=== PATIENT | female | born 1935 | race Caucasian/White ===

== ENCOUNTER 2019-09-25 19:29 | Observation (INO) | payer OTHER ==
[2019-09-25] MEDS ORDERED: ONDANSETRON 4 MG/2 ML VIAL ONE (19:55)
[2019-09-25] MEDS ORDERED: MECLIZINE HCL 12.5 MG TAB ONE (19:55)
[2019-09-25] MEDS ORDERED: FOLIC ACID 5 MG/ML VIAL ONE (20:20)
[2019-09-25] MEDS ORDERED: FAMOTIDINE 20 MG/2 ML VIAL IV ONE (20:20)
[2019-09-25] MEDS ORDERED: ASPIRIN 81 MG CHEWABLE TABLET ONE ×2 (20:20→20:45)
--- NOTE | 2019-09-25 20:34 | RAD REPORT ---
EXAM DESCRIPTION: Erick Single View09/25/2019 8:14 pm CLINICAL HISTORY: Chest pain COMPARISON: 2016 FINDINGS: The lungs appear clear of acute infiltrate. The heart is mildly enlarged IMPRESSION: No acute abnormalities displayed
[2019-09-25] MEDS ORDERED: NA CHLORIDE 0.9% 1,000 ML ONE (20:46)
--- NOTE | 2019-09-25 20:56 | RAD REPORT ---
EXAM DESCRIPTION: CT - Head Brain Wo Cont - 09/25/2019 8:34 pm CLINICAL HISTORY: Dizziness COMPARISON: None TECHNIQUE: Computed axial tomography of the head was obtained. IV contrast was not requested. All CT scans are performed using dose optimization technique as appropriate and may include automated exposure control or mA/KV adjustment according to patient size. FINDINGS: An intracranial bleed is not seen . The ventricles are normal in caliber. No extra-axial fluid collection is noted. Mild to moderate low-density areas within periventricular, deep and subcortical white matter likely r epresent ischemic changes secondary to small vessel disease. Fluid within the sinuses/ mastoids is not seen. IMPRESSION: No acute intracranial abnormality is seen. If patient's symptoms persist MRI of the bra in would be recommended.
--- NOTE | 2019-09-25 21:10 | ER ---
Nurse's Notes [facility] Name: Julieth Barragan Age: 84 yrs Sex: Female : 1935 Arrival Date: 09/25/2019 Time: 19:31 Bed 5 Private MD: Diagnosis: Dizziness and giddiness;Vomiting;Parkinson's disease;Urinary tract infection, site not specified Presentation: 09/25 19:35 Presenting complaint: Patient states: dizziness X5 days, vomiting started today. pt ak1 states the change in position increases the dizziness and vomiting. pt tried to see PCP DR. Jefferson this week but no appointments open. pt thought she had an ear infection and has been treating it with OTC medication. Transition of care: patient was not received from another setting of care. Onset of symptoms was September 25, 2019. Risk Assessment: Do you want to hurt yourself or someone else? Patient reports no desire to harm self or others. Initial Sepsis Screen: Does the patient meet any 2 criteria? No. Patient's initial sepsis screen is negative. Does the patient have a suspected source of infection? No. Patient's initial sepsis screen is negative. Care prior to arrival: zofran 4mg IV. 19:35 Acuity: RUKHSANA 3 ak1 19:35 Method Of Arrival: EMS: [facility] ak1 Triage Assessment: 19:37 General: Appears in no apparent distress. Behavior is calm, cooperative. Pain: Denies ak1 pain. EENT: No signs and/or symptoms were reported regarding the EENT system. Neuro: Level of Consciousness is awake, alert, obeys commands, Oriented to person, place, time, situation, It Generalist are equal bilaterally Moves all extremities. Full function Gait is unsteady, pt c/o dizziness X5 days. Speech is normal, Facial symmetry appears normal. Cardiovascular: No deficits noted. Respiratory: Airway is patent Respiratory effort is even, unlabored, Respiratory pattern is symmetrical, Breath sounds are clear bilaterally. GI: Abdomen is flat, non-distended, Bowel sounds present X 4 quads. Abd is soft and non tender X 4 quads. Reports nausea, vomiting, since tonight due to dizziness. : No signs and/or symptoms were reported regarding the genitourinary system. Derm: No signs and/or symptoms reported regarding the dermatologic system. Musculoskeletal: No signs and/or symptoms reported regarding the musculoskeletal system. Historical: - Allergies: 19:37 No Known Allergies; ak1 - Home Meds: 19:37 Carbidopa-Levodopa Oral [Active]; unknown ostioprosis medication [Active]; Simvastatin ak1 Oral [Active]; - PMHx: 19:37 High Cholesterol; Osteoporosis; Parkinsons; ak1 - PSHx: 19:37 Cholecystectomy; Hysterectomy; ak1 - Immunization history:: Adult Immunizations unknown. - Social history:: Smoking status: Patient/guardian denies using tobacco. - Ebola Screening: : No symptoms or risks identified at this time. - Family history:: not pertinent. Screenin:39 Abuse screen: Denies threats or abuse. Denies injuries from another. Nutritional ak1 screening: No deficits noted. Tuberculosis screening: No symptoms or risk factors identified. Fall Risk IV access (20 points). Gait- Impaired (20 pts.). Assessment: 20:23 Reassessment: Patient appears in no apparent distress at this time. Patient is alert, ak1 oriented x 3, equal unlabored respirations, skin warm/dry/pink. family at bedside. Patient states symptoms have improved. General: Appears in no apparent distress. comfortable, Behavior is calm, cooperative. 21:06 Reassessment: Patient appears in no apparent distress at this time. Patient and/or ak1 family updated on plan of care and expected duration. Pain level reassessed. Patient is alert, oriented x 3, equal unlabored respirations, skin warm/dry/pink. Patient denies pain at this time. Patient states feeling better. Patient states symptoms have improved. Vital Signs: 19:37 BP 203 / 86; Pulse 107; Resp 16; Temp 97.0; Pulse Ox 100% on R/A; Weight 81.65 kg (R); ak1 Height 5 ft. 6 in. (167.64 cm) (R); Pain 0/10; 20:23 BP 153 / 65; Pulse 64; Resp 16; Temp 97; Pulse Ox 95% on R/A; Pain 0/10; ak1 21:39 BP 153 / 141; Pulse 74; Resp 14; Temp 97.6(TE); Pulse Ox 98% on R/A; ak1 19:37 Body Mass Index 29.05 (81.65 kg, 167.64 cm) ak1 NIH Stroke Scale Scores: 20:20 NIHSS Score: 0 [facility] ED Course: 19:31 Patient arrived in ED. cf2 19:35 Roselyn Petty, RN is Primary Nurse. ak1 19:36 Triage completed. ak1 19:37 Arm band placed on Patient placed in an exam room, on a stretcher, on pulse oximetry, ak1 Patient notified of wait time. 19:39 Patient has correct armband on for positive identification. Bed in low position. Call ak1 light in reach. Side rails up X2. Adult w/ patient. Pulse ox on. NIBP on. 19:39 Maintain EMS IV. Dressing intact. Site clean \T\ dry. Gauge \T\ site: 20g right hand. ak 1 19:45 Parminder Guardado MD is Attending Physician. jose roberto 20:06 XRAY Chest (1 view) Sent. ak1 20:10 XRAY Chest (1 view) In Process Unspecified. EDMS 20:33 CT completed. Patient tolerated procedure well. Patient moved back from CT. bq 20:36 CT Head Brain wo Cont In Process Unspecified. EDMS 21:08 Layla Drummond MD is Hospitalizing Provider. jose roberto 21:42 No provider procedures requiring assistance completed. Patient admitted, IV remains in ak1 place. Administered Medications: 20:15 Drug: Meclizine 25 mg Route: PO; ak1 20:22 Follow up: Response: No adverse reaction ak1 20:15 Drug: Zofran 4 mg Route: IVP; Site: right hand; ak1 20:22 Follow up: Response: No adverse reaction ak1 20:21 Drug: Aspirin Chewable Tablet 324 mg Route: PO; ak1 20:22 Follow up: Response: No adverse reaction ak1 20:21 Drug: Pepcid 20 mg Route: IVP; Site: right hand; ak1 20:22 Follow up: Response: No adverse reaction ak1 20:22 Drug: foLIC Acid 1 mg Route: IVPB; Site: right hand; ak1 21:23 Follow up: IV Status: Completed infusion ak1 20:25 Not Given (Duplicate Order): foLIC Acid 1 mg IVPB once ak1 21:06 Drug: NS 0.9% 1000 ml Route: IV; Rate: 125 ml/hr; Site: right hand; ak1 21:42 Follow up: IV Status: Infusion continued upon admission ak1 21:22 Drug: Rocephin 1 grams Route: IV; Rate: per protocol; Site: right hand; ak1 21:23 Follow up: IV Status: Completed infusion ak1 Outcome: 21:09 Decision to Hospitalize by Provider. jose roberto 21:42 Condition: improved ak1 22:29 Admitted to Tele accompanied by ruthie, via stretcher, room 426, with chart, Report rr5 called to yulissa 22:29 Instructed on the need for admit. 22:50 Patient left the ED. ak1 NIH Stroke Scale - NIH Stroke Score Date: 09/25/2019 Time: 20:20 Total Score = 0 1a. Level of Consciousness (LOC) - 0(Alert) 1b. Level of Consciousness (LOC) (Year \T\ Age) - 0(Both) 1c. LOC Commands (Open \T\ Closes Eyes/Residential Therapist) - 0(Both) 2. Best Gaze (Lateral Gaze Paresis) - 0(Normal) 3. Visual Field Loss - 0(No visual loss) 4. Facial Palsy - 0(Normal) 5a. Left Arm: Motor (10-second hold) - 0(No drift) 5b. Right Arm: Motor (10-second hold) - 0(No drift) 6a. Left Leg: Motor (5-second hold - always test supine) - 0(No drift) 6b. Right Leg: Motor (5-second hold - always test supine) - 0(No drift) 7. Limb Ataxia (finger/nose \T\ heel/vdial - test with eyes open) - 0(Absent) 8. Sensory Loss (pinprick arms/legs/face) - 0(Normal) 9. Best Language: Aphasia (description/naming/reading) - 0(No aphasia) 10. Dysarthria (speech clarity - read or repeat words) - 0(Normal) 11. Extinction and Inattention (visual/tactile/auditory/spatial/personal) - 0(No abnormality) Initials: jose roberto Signatures: Dispatcher [employer] EDParminder Bronson MD MD cha Quilty, Betty bq Krenek, Amber RN RN ak1 Jeremy Ambriz RN RN rr5 Caden Walter2
--- NOTE | 2019-09-25 21:10 | EDPHYS ---
Physician Documentation [facility] Name: Julieth Barragan Age: 84 yrs Sex: Female : 1935 Arrival Date: 09/25/2019 Time: 19:31 Bed 5 Private MD: ED Physician Parminder Guardado HPI: 09/25 20:17 This 84 yrs old Female presents to ER via EMS with complaints of jose roberto Nausea/Vomiting. 20:17 The patient presents to the emergency department with nausea, vomiting, that is jose roberto intermittent. Onset: The symptoms/episode began/occurred just prior to arrival, 2.5 hour(s) ago. Possible causes: unknown. The symptoms are aggravated by nothing. Associated signs and symptoms: Pertinent positives: nausea, vomiting. Severity of symptoms: At their worst the symptoms were mild in the emergency department the symptoms are unchanged. The patient has not experienced similar symptoms in the past. Historical: - Allergies: 19:37 No Known Allergies; ak1 - Home Meds: 19:37 Carbidopa-Levodopa Oral [Active]; unknown ostioprosis medication [Active]; Simvastatin ak1 Oral [Active]; - PMHx: 19:37 High Cholesterol; Osteoporosis; Parkinsons; ak1 - PSHx: 19:37 Cholecystectomy; Hysterectomy; ak1 - Immunization history:: Adult Immunizations unknown. - Social history:: Smoking status: Patient/guardian denies using tobacco. - Ebola Screening: : No symptoms or risks identified at this time. - Family history:: not pertinent. ROS: 20:17 Constitutional: Negative for fever, chills, and weight loss, Eyes: Negative for injury, jose roberto pain, redness, and discharge, ENT: Negative for injury, pain, and discharge, Neck: Negative for injury, pain, and swelling, Cardiovascular: Negative for chest pain, palpitations, and edema, Respiratory: Negative for shortness of breath, cough, wheezing, and pleuritic chest pain, Abdomen/GI: Negative for abdominal pain, nausea, vomiting, diarrhea, and constipation, Back: Negative for injury and pain, : Negative for injury, bleeding, discharge, and swelling, MS/Extremity: Negative for injury and deformity, Skin: Negative for injury, rash, and discoloration, Psych: Negative for depression, anxiety, suicide ideation, homicidal ideation, and hallucinations, Allergy/Immunology: Negative for hives, rash, and allergies, Endocrine: Negative for neck swelling, polydipsia, polyuria, polyphagia, and marked weight changes, Hematologic/Lymphatic: Negative for swollen nodes, abnormal bleeding, and unusual bruising. 20:17 Neuro: Positive for dizziness, hearing loss, of the left ear. Exam: 20:17 Constitutional: This is a well developed, well nourished patient who is awake, alert, jose roberto and in no acute distress. Head/Face: Normocephalic, atraumatic. ENT: Nares patent. No nasal discharge, no septal abnormalities noted. Tympanic membranes are normal and external auditory canals are clear. Oropharynx with no redness, swelling, or masses, exudates, or evidence of obstruction, uvula midline. Mucous membranes moist. Neck: Trachea midline, no thyromegaly or masses palpated, and no cervical lymphadenopathy. Supple, full range of motion without nuchal rigidity, or vertebral point tenderness. No Meningismus. Chest/axilla: Normal chest wall appearance and motion. Nontender with no deformity. No lesions are appreciated. Cardiovascular: Regular rate and rhythm with a normal S1 and S2. No gallops, murmurs, or rubs. Normal PMI, no JVD. No pulse deficits. Respiratory: Lungs have equal breath sounds bilaterally, clear to auscultation and percussion. No rales, rhonchi or wheezes noted. No increased work of breathing, no retractions or nasal flaring. Abdomen/GI: Soft, non-tender, with normal bowel sounds. No distension or tympany. No guarding or rebound. No evidence of tenderness throughout. Back: No spinal tenderness. No costovertebral tenderness. Full range of motion. Skin: Warm, dry with normal turgor. Normal color with no rashes, no lesions, and no evidence of cellulitis. MS/ Extremity: Pulses equal, no cyanosis. Neurovascular intact. Full, normal range of motion. Neuro: Awake and alert, GCS 15, oriented to person, place, time, and situation. Cranial nerves II-XII grossly intact. Motor strength 5/5 in all extremities. Sensory grossly intact. Cerebellar exam normal. Normal gait. Psych: Awake, alert, with orientation to person, place and time. Behavior, mood, and affect are within normal limits. 20:17 Eyes: Periorbital structures: appear normal, no acute changes, Pupils: no acute changes, equal, round, and reactive to light and accomodation, Extraocular movements: intact throughout, Conjunctiva: normal, no acute changes, Nystagmus: nystagmus with fast component noted, bilaterally. Vital Signs: 19:37 BP 203 / 86; Pulse 107; Resp 16; Temp 97.0; Pulse Ox 100% on R/A; Weight 81.65 kg (R); ak1 Height 5 ft. 6 in. (167.64 cm) (R); Pain 0/10; 20:23 BP 153 / 65; Pulse 64; Resp 16; Temp 97; Pulse Ox 95% on R/A; Pain 0/10; ak1 21:39 BP 153 / 141; Pulse 74; Resp 14; Temp 97.6(TE); Pulse Ox 98% on R/A; ak1 19:37 Body Mass Index 29.05 (81.65 kg, 167.64 cm) ak1 NIH Stroke Scale Scores: 20:20 NIHSS Score: 0 jose roberto MDM: 19:45 Patient medically screened. jose roberto 20:20 Data reviewed: vital signs, nurses notes, lab test result(s), EKG, radiologic studies, [facility] CT scan, plain films. 09/25 19:41 Order name: Basic Metabolic Panel [facility] 09/25 19:41 Order name: CBC with Diff [facility] 09/25 19:41 Order name: LFT's [facility] 09/25 19:41 Order name: Magnesium [facility] 09/25 19:41 Order name: NT PRO-BNP [facility] 09/25 19:41 Order name: PT-INR [facility] 09/25 19:41 Order name: Troponin (emerg Dept Use Only) [facility] 09/25 19:53 Order name: Urine Culture [facility] 09/25 20:03 Order name: Glucose, Ancillary Testing; Complete Time: 20:53 EDMS 09/25 21:11 Order name: Urine Dipstick--Ancillary (enter results) [facility] 09/25 21:21 Order name: Manual Differential EDMS 09/25 21:39 Order name: CBC with Automated Diff EDMS 09/25 21:39 Order name: CBC with Automated Diff EDMS 09/25 21:39 Order name: Comprehensive Metabolic Panel EDIN 09/25 19:41 Order name: XRAY Chest (1 view); Complete Time: 20:53 ak1 09/25 19:53 Order name: CT Head Brain wo Cont [facility] 09/25 20:15 Order name: US Carotid Artery Bilateral jose roberto 09/25 21:39 Order name: Comprehensive Metabolic Panel [facility] 09/25 21:39 Order name: Protime (+INR) [facility] 09/25 21:39 Order name: Protime (+INR) [facility] 09/25 21:39 Order name: PTT, Activated Partial Thromb [facility] 09/25 21:39 Order name: PTT, Activated Partial Thromb [facility] 09/25 19:41 Order name: EKG; Complete Time: 19:42 ak 09/25 19:41 Order name: Cardiac monitoring; Complete Time: 20:06 [facility] 09/25 19:41 Order name: EKG - Nurse/Tech; Complete Time: 20:06 [facility] 09/25 19:41 Order name: IV Saline Lock; Complete Time: 19:41 ak 09/25 19:41 Order name: Labs collected and sent; Complete Time: 19:41 [facility] 09/25 19:41 Order name: O2 Per Protocol; Complete Time: 19:41 [facility] 09/25 19:41 Order name: O2 Sat Monitoring; Complete Time: 19:41 [facility] 09/25 19:51 Order name: Accucheck Blood Glucose; Complete Time: 19:51 [facility] 09/25 19:53 Order name: Urine Dipstick-Ancillary (obtain specimen); Complete Time: 21:09 [facility] 09/25 21:39 Order name: CONS Pharmacy Consult [facility] 09/25 21:39 Order name: CONS Physician Consult [facility] 09/25 21:39 Order name: Heart Healthy EDIN Administered Medications: 20:15 Drug: Meclizine 25 mg Route: PO; ak1 20:22 Follow up: Response: No adverse reaction ak1 20:15 Drug: Zofran 4 mg Route: IVP; Site: right hand; ak1 20:22 Follow up: Response: No adverse reaction ak1 20:21 Drug: Aspirin Chewable Tablet 324 mg Route: PO; ak1 20:22 Follow up: Response: No adverse reaction ak1 20:21 Drug: Pepcid 20 mg Route: IVP; Site: right hand; ak1 20:22 Follow up: Response: No adverse reaction ak1 20:22 Drug: foLIC Acid 1 mg Route: IVPB; Site: right hand; ak1 21:23 Follow up: IV Status: Completed infusion ak1 20:25 Not Given (Duplicate Order): foLIC Acid 1 mg IVPB once ak1 21:06 Drug: NS 0.9% 1000 ml Route: IV; Rate: 125 ml/hr; Site: right hand; ak1 21:42 Follow up: IV Status: Infusion continued upon admission ak1 21:22 Drug: Rocephin 1 grams Route: IV; Rate: per protocol; Site: right hand; ak1 21:23 Follow up: IV Status: Completed infusion ak1 Disposition: 09/25/19 21:09 Hospitalization ordered by Layla Drummond for Inpatient Admission. Preliminary diagnosis are Dizziness and giddiness, Vomiting, Parkinson's disease, Urinary tract infection, site not specified. - Bed requested for Telemetry/MedSurg (Inpatient). - Status is Inpatient Admission. ak1 - Condition is Stable. - Problem is new. - Symptoms have improved. UTI on Admission? Yes NIH Stroke Scale - NIH Stroke Score Date: 09/25/2019 Time: 20:20 Total Score = 0 1a. Level of Consciousness (LOC) - 0(Alert) 1b. Level of Consciousness (LOC) (Year \T\ Age) - 0(Both) 1c. LOC Commands (Open \T\ Closes Eyes/Industrial Maintenance Repairer Helper) - 0(Both) 2. Best Gaze (Lateral Gaze Paresis) - 0(Normal) 3. Visual Field Loss - 0(No visual loss) 4. Facial Palsy - 0(Normal) 5a. Left Arm: Motor (10-second hold) - 0(No drift) 5b. Right Arm: Motor (10-second hold) - 0(No drift) 6a. Left Leg: Motor (5-second hold - always test supine) - 0(No drift) 6b. Right Leg: Motor (5-second hold - always test supine) - 0(No drift) 7. Limb Ataxia (finger/nose \T\ heel/vidal - test with eyes open) - 0(Absent) 8. Sensory Loss (pinprick arms/legs/face) - 0(Normal) 9. Best Language: Aphasia (description/naming/reading) - 0(No aphasia) 10. Dysarthria (speech clarity - read or repeat words) - 0(Normal) 11. Extinction and Inattention (visual/tactile/auditory/spatial/personal) - 0(No abnormality) Initials: jose roberto Signatures: Dispatcher [employer] EDMS Parminder Guardado MD MD cha Krenek, Amber RN RN ak1 Britt Yusuf RN RN Corrections: (The following items were deleted from the chart) 21:10 21:09 Hospitalization Ordered by Layla Drummond MD for Inpatient Admission. [facility] Preliminary diagnosis is Dizziness and giddiness; Vomiting; Parkinson's disease. Bed requested for Telemetry/MedSurg (Inpatient). Status is Inpatient Admission. Condition is Stable. Problem is new. Symptoms have improved. UTI on Admission? No. [facility] 22:16 21:10 09/25/2019 21:09 Hospitalization Ordered by Layla Drummond MD for Inpatient Admission. Preliminary diagnosis is Dizziness and giddiness; Vomiting; Parkinson's disease; Urinary tract infection, site not specified. Bed requested for Telemetry/MedSurg (Inpatient). Status is Inpatient Admission. Condition is Stable. Problem is new. Symptoms have improved. UTI on Admission? Yes. [facility] 22:50 22:16 09/25/2019 21:09 Hospitalization Ordered by Layla Drummond MD for ak1 Inpatient Admission. Preliminary diagnosis is Dizziness and giddiness; Vomiting; Parkinson's disease; Urinary tract infection, site not specified. Bed requested for Telemetry/MedSurg (Inpatient). Status is Inpatient Admission. Condition is Stable. Problem is new. Symptoms have improved. UTI on Admission? Yes.
[2019-09-25 21:13] LABS: Absolute Lymphocytes (CBC) 0.7 K/uL (0.7-4.9); Basophils % 1.1 % (0-1.3); Lymphocytes % 6.7 % (15.3-44.8); MPV 9.2 fL (7.6-11.3); RBC Red Blood Cell Count 4.48 M/uL (3.86-4.86)
[2019-09-25 21:14] LABS: Protime INR 0.95
[2019-09-25] MEDS ORDERED: CEFTRIAXONE/SWI 1gm 1 GM/10 ML SYR ONE (21:21)
[2019-09-25] MEDS ORDERED: ONDANSETRON 4 MG/2 ML VIAL IV PRN (21:35)
[2019-09-25] MEDS ORDERED: ACETAMINOPHEN 500 MG TAB PO PRN (21:35)
[2019-09-25] MEDS ORDERED: MORPHINE 2 MG/ML SYR IV PRN (21:35)
[2019-09-25 21:41] LABS: ALT/SGPT 16 U/L (12-78); AST/SGOT 14 U/L (15-37); Albumin 3.3 g/dL (3.4-5.0); Alkaline Phosphatase 39 U/L (45-117); BUN Blood Urea Nitrogen 15 mg/dL (7-18); Bicarbonate 27 mmol/L (21-32); Bilirubin Direct 0.1 mg/dL (0-0.2); Bilirubin Total 0.5 mg/dL (0.2-1.0); Glucose Level 122 mg/dL (74-106); Magnesium 2.1 mg/dL (1.8-2.4); NT PRO-BNP 119 pg/mL (<450); Potassium 4.5 mmol/L (3.5-5.1); Protein, Total 6.1 g/dL (6.4-8.2); Sodium Level 142 mmol/L (136-145); Troponin (Emerg Dept Use Only) < 0.02 ng/mL (0.0-0.045)
[2019-09-25] MEDS: NA CHLORIDE 0.9% 1,000 ML IV SCH (22:00)
[2019-09-25 22:42] LABS: Blood Morphology Comment NOT SEEN (NOT SEEN); Platelet Estimate ADEQ
[2019-09-25 23:02] LABS: Urine Glucose NEGATIVE (NEG); Urine Specific Gravity 1.025 (1.005-1.030)
[2019-09-25 23:03] LABS: Urine Blood NEGATIVE (NEG); Urine Protein NEGATIVE (NEG)
[2019-09-25 23:06] VITALS: BMI 23.3
[2019-09-26] MEDS: NA CHLORIDE 0.9% 1,000 ML IV SCH (05:27)
--- NOTE | 2019-09-26 06:04 | EKG ---
Test Date: 2019-09-25 Test Time: 19:55:49 Tape Weaver: MURTAZA MEASUREMENT RESULTS: Intervals: Rate: 69 SC: 178 QRSD: 78 QT: 414 QTc: 443 Parmele: P: 71 SC: 178 QRS: 3 T: 48 INTERPRETIVE STATEMENTS: Normal sinus rhythm Possible Left atrial enlargement Borderline ECG Compared to ECG 04/11/2016 09:45:09 No significant changes Electronically Signed On 09-26-19 06:03:08 MANAGER COLLECTION by Sen Whitmore
[2019-09-26 06:08] LABS: Absolute Lymphocytes (CBC) 1.3 K/uL (0.7-4.9); Basophils % 0.3 % (0-1.3); Hematocrit 37.5 % (36.0-45.0); Lymphocytes % 17.4 % (15.3-44.8); MPV 9.5 fL (7.6-11.3); RBC Red Blood Cell Count 4.18 M/uL (3.86-4.86)
[2019-09-26 06:11] LABS: Protime INR 0.95
[2019-09-26 06:28] LABS: ALT/SGPT 18 U/L (12-78); AST/SGOT 12 U/L (15-37); Albumin 2.8 g/dL (3.4-5.0); Alkaline Phosphatase 35 U/L (45-117); BUN Blood Urea Nitrogen 13 mg/dL (7-18); Bicarbonate 28 mmol/L (21-32); Bilirubin Total 0.5 mg/dL (0.2-1.0); Glucose Level 93 mg/dL (74-106); Potassium 4.3 mmol/L (3.5-5.1); Protein, Total 5.2 g/dL (6.4-8.2); Sodium Level 146 mmol/L (136-145)
[2019-09-26] MEDS: PRAMIPEXOLE 0.25 MG TAB PO SCH ×2 (08:48→20:16)
[2019-09-26] MEDS: CARBIDOPA/LEVODOPA 25/100 TAB PO SCH ×2 (08:48→20:16)
[2019-09-26] MEDS: RALOXIFENE HCL 60 MG TAB PO SCH (08:49)
--- NOTE | 2019-09-26 09:03 | P.HP ---
Certification for Inpatient Patient admitted to: Observation With expected LOS: <2 Midnights Patient will require the following post-hospital care: None Practitioner: I am a practitioner with admitting privileges, knowledge of patient current condition, hospital course, and medical plan of care. Services: Services provided to patient in accordance with Admission requirements found in Title 42 Section 412.3 of the Code of Federal Regulations Patient History Date of Service: 09/25/19 Reason for admission: Vertigo; near syncope; ataxia; nausea and vomiting History of Present Illness: Patient is an 84-year-old female came to the hospital with intractable nausea and vomiting. Patient has been having intermittent vomiting for the last few hours. Patient also has been having some lightheadedness and vertigo type symptoms. Patient was having lot of difficulty walking because she was so dizzy. She decided to come into the emergency room for further evaluation. Patient has history of Parkinson's disease. She follows up with Neurology, Dr. Fowler. She also follows up with her PCP Dr. Jefferson. Patient is clinically doing better. Will get a carotid Doppler and an echocardiogram as well as MRI to evaluate her posterior circulation including the LAY OUT CARPENTER and basilar artery and to make sure she did not have an acute CVA in the posterior circulation territory. Will admit her to the hospital for further evaluation. Allergies No Known Allergies Allergy (Verified 04/11/16 17:32) Home Medications: Calcium Carbonate/Vitamin D3 [Calcium 600-D3 20Mcg(800 Unit)] 1 tab PO DAILY 06/07 Carbidopa/Levodopa [Carbidopa-Levo 25-100 mg Odt] 1 tab PO BID 09/26/19 Cholecalciferol (Vitamin D3) [Vitamin D3] 1 tab PO DAILY 09/26/19 Docosahexanoic AC/Epa [Fish Oil 1,000 MG*] 1 tab PO DAILY 09/26/19 Raloxifene HCl [Evista*] 1 tab PO DAILY 09/26/19 Turmeric/Turmeric Root Extract [Turmeric 500 mg Capsule] 1 tab PO DAILY - Past Medical/Surgical History Has patient received pneumonia vaccine in the past: Yes Diabetic: No -: PARKINSONS -: CHOLESTEROL -: OSTEOPOROSIS -: Cholecystectomy -: HYSTERECTOMY -: DOUBLE MASTECTOMY WITH RECONSTRUCTION X2 - Family History Mother Notes: BREAST CA Father Medical History: Heart disease, Stroke Notes: NC - Social History Smoking Status: Never smoker Alcohol use: No CD- Drugs: No Caffeine use: Yes Place of Residence: Home Review of Systems 10-point ROS is otherwise unremarkable Physical Examination - Vital Signs Temperature: 97.4 F Blood Pressure: 147/65 Pulse: 65 Respirations: 16 Pulse Ox (%): 100 - Physical Exam General: Alert, In no apparent distress, Oriented x3 HEENT: Atraumatic, PERRLA, Mucous membr. moist/pink, EOMI, Sclerae nonicteric Neck: Supple, 2+ carotid pulse no bruit, No LAD, Without JVD or thyroid abnormality Respiratory: Clear to auscultation bilaterally, Normal air movement Cardiovascular: Regular rate/rhythm, Normal S1 S2, No murmurs Gastrointestinal: Normal bowel sounds, Soft and benign, Non-distended, No tenderness Musculoskeletal: No clubbing, No swelling, No tenderness Integumentary: No rashes Neurological: Normal speech, Normal tone, Sensation intact, Cranial nerves 3-12 intact, Normal affect, Abnormal gait, Abnormal strength (Some weakness in the lower extremities 4 5) Lymphatics: No axilla or inguinal lymphadenopathy - Studies Laboratory Data (last 24 hrs) 09/25/19 20:52: PT 11.2, INR 0.95 09/25/19 20:52: WBC 10.3, Hgb 13.5, Hct 41.0, Plt Count 202 09/25/19 20:52: Sodium 142, Potassium 4.5, BUN 15, Creatinine 0.66, Glucose 122 H, Magnesium 2.1, Total Bilirubin 0.5, AST 14 L, ALT 16, Alkaline Phosphatase 39 L Assessment & Plan - Problems (Diagnosis) (1) Vertigo Current Visit: Yes Status: Acute (2) Ataxia Current Visit: Yes Status: Acute (3) Nausea and vomiting Current Visit: Yes Status: Acute (4) Weakness Current Visit: Yes Status: Acute (5) Near syncope Current Visit: Yes Status: Acute (6) History of Parkinson's disease Current Visit: Yes Status: Acute - Plan Plan: 1. Will get an echocardiogram and a carotid Doppler 2. MRI stroke protocol 3. Neurology consultation 4. Gentle hydration 5. Physical therapy evaluation 6. Anti-platelet therapy and DVT prophylaxis 7. Patient swallowing without difficulty do not need speech therapy 8. GI and DVT prophylaxis - Advance Directives Does patient have a Living Will: Yes Does patient have a Durable POA for Healthcare: Yes
--- NOTE | 2019-09-26 09:15 | P.PN ---
Subjective Date of Service: 09/26/19 Subjective: No new changes, No C/O voiced, Improving Review of Systems 10-point ROS is otherwise unremarkable Physical Examination - Vital Signs Temperature: 97.4 F Blood Pressure: 147/65 Pulse: 65 Respirations: 16 Pulse Ox (%): 100 - Physical Exam General: Alert, In no apparent distress, Oriented x3 Respiratory: Clear to auscultation bilaterally, Normal air movement Cardiovascular: Regular rate/rhythm, Normal S1 S2, No murmurs Gastrointestinal: Normal bowel sounds, Soft and benign, Non-distended, No rebound, No guarding Musculoskeletal: No clubbing, No swelling Integumentary: No rashes, No breakdown Neurological: Normal gait, Normal strength at 5/5 x4 extr, Normal tone, Sensation intact, Cranial nerves 3-12 intact - Studies Laboratory Data (last 24 hrs) 09/25/19 20:52: PT 11.2, INR 0.95 09/25/19 20:52: WBC 10.3, Hgb 13.5, Hct 41.0, Plt Count 202 09/25/19 20:52: Sodium 142, Potassium 4.5, BUN 15, Creatinine 0.66, Glucose 122 H, Magnesium 2.1, Total Bilirubin 0.5, AST 14 L, ALT 16, Alkaline Phosphatase 39 L Assessment & Plan - Problems (Diagnosis) (1) Vertigo Current Visit: Yes Status: Acute (2) Ataxia Current Visit: Yes Status: Acute (3) Nausea and vomiting Current Visit: Yes Status: Acute (4) Weakness Current Visit: Yes Status: Acute (5) Near syncope Current Visit: Yes Status: Acute (6) History of Parkinson's disease Current Visit: Yes Status: Acute - Plan Plan: Awaiting for diagnostic studies to be performed. This will probably be done Friday. Consultants to see the patient later today as well. Possible discharge home if diagnostic studies are negative. Plan of care as mentioned below 1. Will get an echocardiogram and a carotid Doppler 2. MRI stroke protocol 3. Neurology consultation 4. Gentle hydration 5. Physical therapy evaluation 6. Anti-platelet therapy and DVT prophylaxis 7. Patient swallowing without difficulty do not need speech therapy 8. GI and DVT prophylaxis Discharge Plan: Home Plan to discharge in: Greater than 2 days - Advance Directives Does patient have a Living Will: Yes Does patient have a Durable POA for Healthcare: Yes - Code Status/Comfort Care Code Status Assessed: Yes Code Status: Full Code Critical Care: No Time Spent Managing PTS Care (In Minutes): 25
[2019-09-26] MEDS: D5 0.45 NS 1,000 ML IV SCH (09:24)
[2019-09-26] MEDS: ASPIRIN EC 81 MG TAB PO SCH (09:24)
[2019-09-26] MEDS ORDERED: ENOXAPARIN 30 MG/0.3 ML SQ SCH (17:00)
[2019-09-26] MEDS ORDERED: ATORVASTATIN 10 MG TAB PO SCH (21:00)
[2019-09-27] MEDS: D5 0.45 NS 1,000 ML IV SCH ×2 (05:00→09:06)
[2019-09-27] MEDS ORDERED: AMLODIPINE 10 MG TAB PO SCH (09:00)
[2019-09-27] MEDS: PRAMIPEXOLE 0.25 MG TAB PO SCH (09:01)
[2019-09-27] MEDS: CARBIDOPA/LEVODOPA 25/100 TAB PO SCH (09:01)
[2019-09-27] MEDS: ASPIRIN EC 81 MG TAB PO SCH (09:01)
[2019-09-27] MEDS: RALOXIFENE HCL 60 MG TAB PO SCH (09:04)
[2019-09-27 09:16] VITALS: O2SAT 95
--- NOTE | 2019-09-27 10:20 | RAD REPORT ---
EXAM DESCRIPTION: MRI - Brain W/Wo Cont - 09/27/2019 8:52 am CLINICAL HISTORY: Vertigo. COMPARISON: September 25/[address] TECHNIQUE: Axial, sagittal, and coronal magnetic images of the brain were obtained. 20 cc MultiHance administered intravenously FINDINGS: Moderate to marked signal within periventricular, deep and subcortical white matter probab ly ischemic changes secondary to small vessel disease The ventricles are normal in caliber. Diffusion-weighted/ ADC mapping sequences do not demonstrate evidence of an acute infarction. No abnormal enhancement within the brain is seen. An extra-axial fluid collection is not noted. Fluid within the sinuses/mastoids is not seen IMPRESSION: No acute abnormality displayed
--- NOTE | 2019-09-27 10:23 | RAD REPORT ---
EXAM DESCRIPTION: MRI - MRA Neck W/Wo Cont - 09/27/2019 8:52 am CLINICAL HISTORY: Vertigo COMPARISON: None. TECHNIQUE: Magnetic resonance angiogram of the neck was performed. Twelve cc MultiHance was administ ered intravenously. 3D MIPS reconstruction performed FINDINGS: The common carotid, internal carotid and external carotid arteries do not demonstrate a si gnificant stenosis. Mild plaque is present within the carotid arteries. An aneurysm is not seen. The left vertebral artery is more dominant than the right. No abnormality is noted. . IMPRESSION: Mild plaque within the carotid arteries NASCET criteria used. Mild 0-49% stenosis Moderate 50-69% stenosis Severe 70-99% stenosis
--- NOTE | 2019-09-27 10:26 | RAD REPORT ---
EXAM DESCRIPTION: USCarotid Artery Qcssszsub50/9/2019 9:50 am CLINICAL HISTORY: Vertigo COMPARISON: None FINDINGS: The velocity of the right internal carotid artery equals 110 cm/sec. The right ICA/CCA rat io 1.4 The velocity of the left internal carotid artery equals 145 cm/sec. The left ICA/CCA ratio 1.6 Mild plaque is present within the carotid arteries. The vertebral arteries demonstrate antegrade flow IMPRESSION: Mild plaque within the carotid arteries NASCET criteria used. Mild 0-49% stenosis Moderate 50-69% stenosis Severe 70-99% stenosis
--- NOTE | 2019-09-27 10:48 | RAD REPORT ---
EXAM DESCRIPTION: MRI - MRA Head Wo Cont - 09/27/2019 8:52 am CLINICAL HISTORY: Vertigo COMPARISON: None. TECHNIQUE: Magnetic resonance angiogram was performed. 3D MIPS reconstruction performed FINDINGS: The anterior cerebral, middle cerebral, posterior cerebral, distal internal carotid and ba silar arteries do not demonstrate a significant stenosis. An aneurysm is not displayed. IMPRESSION: No significant abnormality displayed
--- NOTE | 2019-09-27 12:30 | P.DS ---
Admission Date: 09/25/19 Discharge Date: 09/27/19 Disposition: ROUTINE DISCHARGE Discharge Condition: GOOD Reason for Admission: Vertigo; near syncope; ataxia; nausea and vomiting - Problems (1) Ataxia Current Visit: Yes Status: Acute (2) Hypertensive encephalopathy syndrome Current Visit: Yes Status: Acute (3) Nausea and vomiting Current Visit: Yes Status: Acute Brief History of Present Illness: patient with hx of low BP many years ago and new white coat HTN admitted for nausea , vomiting , vertigo and noted with elevated BP in the 200s systolic Hospital Course: pt was admitted for r/o TIA . She had an MRI brain and carotid duplex done which was unremarkable except for chronic ischemic changes . Her vertigo and dizziness resolved , She was noted with UTI . Her BP remain persistent elevated but improved with started Norvasc. She has been advised to take her BP and meds regularly and follow with her PCP . her fmaily were also d/w Vital Signs/Physical Exam: Temp Pulse Resp BP Pulse Ox 97.3 F 72 18 181/83 H 95 09/27/19 08:00 09/27/19 10:06 09/27/19 08:00 09/27/19 10:06 09/27/19 08:00 General: Alert, In no apparent distress, Oriented x3 Neck: Supple, 2+ carotid pulse no bruit Respiratory: Clear to auscultation bilaterally, Normal air movement Cardiovascular: Normal pulses, Regular rate/rhythm, Normal S1 S2 Gastrointestinal: Normal bowel sounds, Soft and benign Neurological: Normal gait, Normal speech, Normal strength at 5/5 x4 extr External genitalia: No edema, No lesions Laboratory Data at Discharge: WBC 7.3 K/uL (4.3-10.9) D 09/26/19 05:31 Hgb 12.6 g/dL (12.0-15.0) 09/26/19 05:31 Hct 37.5 % (36.0-45.0) 09/26/19 05:31 Plt Count 213 K/uL (152-406) 09/26/19 05:31 PT 11.2 SECONDS (9.5-12.5) 09/26/19 05:31 INR 0.95 09/26/19 05:31 APTT 28.7 SECONDS (24.3-36.9) 09/26/19 05:31 Sodium 146 mmol/L (136-145) H 09/26/19 05:31 Potassium 4.3 mmol/L (3.5-5.1) 09/26/19 05:31 BUN 13 mg/dL (7-18) 09/26/19 05:31 Creatinine 0.62 mg/dL (0.55-1.3) 09/26/19 05:31 Glucose 93 mg/dL (74-106) 09/26/19 05:31 Magnesium 2.1 mg/dL (1.8-2.4) 09/25/19 20:52 Total Bilirubin 0.5 mg/dL (0.2-1.0) 09/26/19 05:31 AST 12 U/L (15-37) L 09/26/19 05:31 ALT 18 U/L (12-78) 09/26/19 05:31 Alkaline Phosphatase 35 U/L (45-117) L 09/26/19 05:31 Home Medications: Calcium Carbonate/Vitamin D3 [Calcium 600-D3 20Mcg(800 Unit)] 1 tab PO DAILY 06/07 Carbidopa/Levodopa [Carbidopa-Levo 25-100 mg Odt] 1 tab PO BID 09/26/19 Cholecalciferol (Vitamin D3) [Vitamin D3] 1 tab PO DAILY 09/26/19 Docosahexanoic AC/Epa [Fish Oil 1,000 MG*] 1 tab PO DAILY 09/26/19 Raloxifene HCl [Evista*] 1 tab PO DAILY 09/26/19 Turmeric/Turmeric Root Extract [Turmeric 500 mg Capsule] 1 tab PO DAILY Amlodipine [Norvasc*] 10 mg PO DAILY #30 tab 09/27/19 Aspirin 81 mg PO DAILY #30 tab.chew 09/27/19 New Medications: Amlodipine [Norvasc*] 10 mg PO DAILY #30 tab Aspirin 81 mg PO DAILY #30 tab.chew Patient Discharge Instructions: monitor home BP closely. -call your PCP with results. -follow with PCP in 1 week Activity: Ad thu Physician Review: Patient Assessed, Agree with Above Assessment and Plan Time spent managing pt's care (in minutes): 40
[2019-09-27 12:42] VITALS: BP 143/65; TEMP 97.5
--- NOTE | 2019-09-28 02:52 | CON ---
Reason For Consultation: Consultation called because of vertigo. History Of Present Illness: Ms. Barragan is an 84-year-old right-handed patient who has controlled Pa rkinson disease, taking carbidopa/levodopa 25/100 twice a day, but who comes in with approximately 2 weeks of intermittent vertiginous symptoms. Her symptoms became significantly worse 2 days ago at th e time of admission, where she noted after getting up from a seated position significant vertigo symp toms with the room appearing to spin from right to left. She was unable to maintain her balance. Sh e had to crawl on the floor to get towards her and she actually called several times before h e was able to hear her and respond. She developed significant nausea with vomiting and was brought t [facility]. Workup included urinalysis which showed a urinary tract infection, however, a t this time her blood pressure was very elevated to 200/110. She did receive some IV fluids and kyree tment of her urinary tract infection along with Zofran for her nausea. Her blood pressures did decre ase after admission to the 140s, systolic. At the time of my evaluation she has a blood pressure of 143/65. She had resolved her vertigo, nausea and vomiting. Family at the bedside noted that she had returned towards her baseline level of functioning. Past Medical History: Parkinson disease, dyslipidemia, osteoporosis. Surgical History: Cholecystectomy, hysterectomy, double mastectomy, and reconstruction. Allergies: NO KNOWN DRUG ALLERGIES. Family History: Positive for breast cancer in mother, heart disease and stroke, followed by myocardi al infraction in father. Social History: No alcohol, tobacco, or IV drug use. Patient does drink caffeinated beverages. Res ides at home. Family lives close by. Review of Systems: Aside from mentioned above, no recent fevers or chills. No myalgias, arthralgias, headache, weight c hange. No psychiatric complaints and no focal neurologic deficits. Physical Examination: Vital Signs: Blood pressure is 143/65, pulse 80, respiratory rate 16, temperature 97.5, oxygen satur ation 94% on room air, weight 123 pounds, height 5 feet 1 inch, BMI 23.4. General: Ms. Barragan is sitting in a chair beside her bed. She is in no acute distress. HEENT: She is normocephalic, atraumatic. Sclerae anicteric. Oropharynx pink and moist. Neck: Supple. Chest: Clear. Heart: Regular. Extremities: Show no edema, cyanosis, or clubbing. Neurological: She is alert and oriented to situation, place, and person, follows all commands approp riately. She has no focal cranial nerve deficits. No focal motor, sensory, coordination, or gait de ficits. Laboratory Studies: Complete blood count with differential is normal. Coagulation panel shows INR o f 0.95. Chemistries show sodium 146, potassium 4.3, chloride 113, carbon dioxide 28, BUN 13, creatin ine 0.62. Liver function studies are unremarkable, except slightly low AST of 12, ALT 18, alkaline p hosphatase low at 35, albumin low at 2.8. Urinalysis on admission showed trace esterase. The urine culture did grow between 10,000 and 100,000 colony-forming units. Assessment: Ms. Barragan is an 84-year-old patient with benign paroxysmal positional vertigo that has resolved. She had very elevated blood pressure, but the workup including a brain MRI being negative for acute ischemic or hemorrhagic stroke. The rest of her brain imaging included MRA of the head an d neck, which showed no hemodynamically significant stenosis. Carotid artery ultrasound also reveale d no hemodynamically significant stenosis. Plan: 1.She may perform the Felton maneuver if there are repeat episodes of vertigo. 2.She should monitor her blood pressures at home for potential adjustment of antihypertensive medica tions. 3.Lipitor 10 mg at bedtime for stroke risk reduction. 4.For her Parkinson disease, continue carbidopa/levodopa 25/100 twice daily and may use Mirapex as w ell with carbidopa/levodopa 0.25 mg twice daily. After discharge, follow up in Dr. Fowler's clinic in 1 month. MATTHIAS/JHONATHAN Voice ID: [id number] Report ID: [id number]
== END 2019-09-27 13:51 | disposition home or self-care (01) ==
LOC: ER 19:29 → ERHOLD 21:35 → 4TH 22:33
PROVIDERS: ADMIT Hospitalist; ATTEND Hospitalist
DX: I67.4 Hypertensive encephalopathy (principal); R27.8 Other lack of coordination; N39.0 Urinary tract infection, site not specified; R11.2 Nausea with vomiting, unspecified; G20 Parkinson's disease
CPT/HCPCS: 96365; 93005; 87088; 85025 ×2; 87086; 80048; 36415; 83735; 85610 ×2; 82947; 80076; 85730; 81003; 84484; 80053; 83880; 70450; 71045; 93880; 70553; 70544; 70549; 97110; 97116; 97161; 97530; 96375; 99285; A9577; J1650; J0696; J7799 ×2; J7030 ×2; J2405; G0378 ×3; J8597

== ENCOUNTER 2022-12-11 06:48 | Observation (INO) | payer OTHER ==
--- OUTSIDE RECORDS SUMMARY | 2022-12-11 06:52 | XMS REPORT | Continuity of Care Document ---
:[address] [facility] t Address [address] [place] [address] Dr. Mary [address] [place] [id number] Care Team Providers Name Role Phone Unavailable Unavailable Unavailable Problems This patient has no known problems. Allergies, Adverse Reactions, Alerts This patient has no known allergies or adverse reactions. Medications This patient has no known medications. Procedures This patient has no known procedures. Results This patient has no known results.
[2022-12-11] MEDS ORDERED: FENTANYL CITR 100 MCG/2 ML ONE (08:00)
[2022-12-11] MEDS ORDERED: METOPROLOL TAR 50 MG TAB ONE (08:00)
[2022-12-11] MEDS ORDERED: ONDANSETRON 4 MG/2 ML VIAL ONE (08:01)
[2022-12-11] MEDS ORDERED: ASPIRIN EC 81 MG TAB PO ONE (08:01)
[2022-12-11] MEDS ORDERED: FAMOTIDINE 20 MG/2 ML VIAL IV ONE (08:01)
--- NOTE | 2022-12-11 08:10 | RAD REPORT ---
EXAM DESCRIPTION: RAD - Chest Single View - 12/11/2022 7:57 am CLINICAL HISTORY: CHEST PAIN COMPARISON: Chest Single View dated 09/25/2019; Chest Single View dated 04/11/2016 FINDINGS: Lines: None. Lungs: No evidence of edema or pneumonia. Pleural: No significant pleural effusions or pneumothorax. Cardiac: Cardiomegaly. Mediastinum: Within normal limits. Bones: No acute fractures. Other: None IMPRESSION: No acute cardiopulmonary disease.
[2022-12-11 08:21] LABS: Urine Blood Negative (Negative); Urine Glucose Negative (Negative); Urine Protein Negative (Negative); Urine pH 5.5 (5.0-7.0)
[2022-12-11 08:30] LABS: Absolute Lymphocytes (CBC) 0.7 K/uL (0.7-4.9); Hematocrit 42.3 % (36.0-45.0); MCV 92.6 fL (80-100); MPV 8.7 fL (7.6-11.3); RBC Red Blood Cell Count 4.57 M/uL (3.86-4.86)
[2022-12-11 08:31] LABS: Protime INR 0.92
--- NOTE | 2022-12-11 08:39 | EDPHYS ---
Physician Documentation [facility] Name: Julieth Barragan Age: 87 yrs Sex: Female : 1935 Arrival Date: 12/11/2022 Time: 06:50 Bed 17 Private MD: ANGELIQUE Physician Parminder Guardado HPI: 12/11 08:25 This 87 yrs old Female presents to ER via EMS with complaints of Shoulder jose roberto Pain. 08:25 The patient or guardian complains of pain, that is acute. left shoulder. jose roberto Historical: - Allergies: 06:53 No Known Allergies; bb - Home Meds: 09:36 carbidopa-levodopa 25-100 mg oral TbER 1 tab 2 times per day for parkinsonism [Active]; sg5 pramipexole 0.5 mg oral tab 2 tabs 3 times per day [Active]; raloxifene 60 mg oral tab 1 tab once daily [Active]; aspirin 81 mg Oral cap 1 cap once daily [Active]; - PMHx: 06:53 High Cholesterol; Osteoporosis; Parkinsons; bb - Immunization history:: Client reports having NOT received the Covid vaccine. - Social history:: Smoking status: Patient denies any tobacco usage or history of. ROS: 08:25 Constitutional: Negative for fever, chills, and weight loss, Eyes: Negative for injury, jose roberto pain, redness, and discharge, ENT: Negative for injury, pain, and discharge, Neck: Negative for injury, pain, and swelling, Cardiovascular: Negative for chest pain, palpitations, and edema, Respiratory: Negative for shortness of breath, cough, wheezing, and pleuritic chest pain, Abdomen/GI: Negative for abdominal pain, nausea, vomiting, diarrhea, and constipation, : Negative for injury, bleeding, discharge, and swelling, MS/Extremity: Negative for injury and deformity, Skin: Negative for injury, rash, and discoloration, Psych: Negative for depression, anxiety, suicide ideation, homicidal ideation, and hallucinations, Allergy/Immunology: Negative for hives, rash, and allergies, Endocrine: Negative for neck swelling, polydipsia, polyuria, polyphagia, and marked weight changes, Hematologic/Lymphatic: Negative for swollen nodes, abnormal bleeding, and unusual bruising. 08:25 Back: Positive for pain at rest, of the left scapular area. 08:25 Neuro: Positive for weakness. Exam: 08:25 Constitutional: This is a well developed, well nourished patient who is awake, alert, jose roberto and in no acute distress. Head/Face: Normocephalic, atraumatic. Eyes: Pupils equal round and reactive to light, extra-ocular motions intact. Lids and lashes normal. Conjunctiva and sclera are non-icteric and not injected. Cornea within normal limits. Periorbital areas with no swelling, redness, or edema. ENT: Nares patent. No nasal discharge, no septal abnormalities noted. Tympanic membranes are normal and external auditory canals are clear. Oropharynx with no redness, swelling, or masses, exudates, or evidence of obstruction, uvula midline. Mucous membranes moist. Neck: Trachea midline, no thyromegaly or masses palpated, and no cervical lymphadenopathy. Supple, full range of motion without nuchal rigidity, or vertebral point tenderness. No Meningismus. Chest/axilla: Normal chest wall appearance and motion. Nontender with no deformity. No lesions are appreciated. Cardiovascular: Regular rate and rhythm with a normal S1 and S2. No gallops, murmurs, or rubs. Normal PMI, no JVD. No pulse deficits. Respiratory: Lungs have equal breath sounds bilaterally, clear to auscultation and percussion. No rales, rhonchi or wheezes noted. No increased work of breathing, no retractions or nasal flaring. Abdomen/GI: Soft, non-tender, with normal bowel sounds. No distension or tympany. No guarding or rebound. No evidence of tenderness throughout. Back: No spinal tenderness. No costovertebral tenderness. Full range of motion. Skin: Warm, dry with normal turgor. Normal color with no rashes, no lesions, and no evidence of cellulitis. MS/ Extremity: Pulses equal, no cyanosis. Neurovascular intact. Full, normal range of motion. Neuro: Awake and alert, GCS 15, oriented to person, place, time, and situation. Cranial nerves II-XII grossly intact. Motor strength 5/5 in all extremities. Sensory grossly intact. Cerebellar exam normal. Normal gait. Psych: Awake, alert, with orientation to person, place and time. Behavior, mood, and affect are within normal limits. 08:25 ECG was reviewed by the Attending Physician. 08:25 Musculoskeletal/extremity: ROM: no acute changes, intact in all extremities, Circulation is intact in all extremities. Sensation intact. Compartment Syndrome exam of affected extremity: is normal. DVT Exam: No signs of deep vein thrombosis. no pain, no swelling, no tenderness, negative Homans' sign noted on exam, no appreciated bluish discoloration, no erythema, no increased warmth. 08:50 ECG was reviewed by the Attending Physician. [facility] Vital Signs: 06:51 BP 162 / 75; Pulse 107; Resp 16 S; Temp 98(O); Pulse Ox 97% on R/A; Weight 56.7 kg (R); bb Height 5 ft. 0 in. (152.40 cm) (R); Pain 0/10; 08:29 BP 163 / 68; Pulse 87; Resp 18; Pulse Ox 98% on R/A; Pain 0/10; ph 09:37 BP 148 / 60; Pulse 94; Resp 18; Pulse Ox 99% on R/A; ph 10:51 BP 155 / 72; Pulse 72; Resp 18; Pulse Ox 98% on R/A; ph 14:02 BP 138 / 65; Pulse 88; Resp 18; Temp 97.2; Pulse Ox 96% on R/A; ph 06:51 Body Mass Index 24.41 (56.70 kg, 152.40 cm) bb MDM: 07:10 Patient medically screened. [facility] 08:28 Differential Diagnosis flu. Data reviewed: vital signs, nurses notes, lab test [facility] result(s), EKG, radiologic studies, plain films. Consideration of Admission/Observation Patient was admitted/placed on observation. Management of patient was discussed with the following: Primary Care Provider: dr justyn gregory. Test considered but Not performed: MRI: mri chest. Care significantly affected by the following chronic conditions: high cholesterol, parkinson, osteoporosis. 12/11 07:45 Order name: Basic Metabolic Panel 12/11 07:45 Order name: CBC with Diff 12/11 07:45 Order name: LFT's 12/11 07:45 Order name: Magnesium 12/11 07:45 Order name: NT PRO-BNP 12/11 07:45 Order name: PT-INR 12/11 07:45 Order name: Troponin HS 12/11 07:45 Order name: COVID-19/FLU A+B [facility] 12/11 07:45 Order name: Urine Microscopic Only [facility] 12/11 08:21 Order name: Urine Dipstick-Ancillary; Complete Time: 08:24 EDNE 12/11 08:31 Order name: Protime (+INR); Complete Time: 08:53 EDNE 12/11 08:37 Order name: CBC with Automated Diff; Complete Time: 08:53 EDMS 12/11 08:47 Order name: Urine Microscopic Only; Complete Time: 08:53 EDNE 12/11 09:06 Order name: Basic Metabolic Panel; Complete Time: 09:18 EDMS 12/11 07:45 Order name: XRAY Chest (1 view) [facility] 12/11 07:45 Order name: CT Aorta for Dissection [facility] 12/11 08:10 Order name: RAD; Complete Time: 08:24 EDNE 12/11 08:53 Order name: Echo w/ Doppler [facility] 12/11 09:06 Order name: Liver (Hepatic) Function; Complete Time: 09:18 EDMS 12/11 09:06 Order name: Troponin High Sensitivity; Complete Time: 09:18 EDNE 12/11 09:06 Order name: NT PRO-BNP; Complete Time: 09:18 EDMS 12/11 09:06 Order name: Magnesium; Complete Time: 09:18 EDNE 12/11 09:19 Order name: COVID-19/FLU A+B; Complete Time: 09:26 EDNE 12/11 10:04 Order name: CT; Complete Time: 10:05 EDNE 12/11 11:30 Order name: RAD EDNE 12/11 12:43 Order name: Phosphorus EDNE 12/11 12:43 Order name: T4 Free [facility] 12/11 12:43 Order name: Magnesium EDNE 12/11 12:43 Order name: Thyroid Stimulating Hormone EDNE 12/11 13:58 Order name: Troponin High Sensitivity [facility] 12/11 07:45 Order name: EKG; Complete Time: 07:46 [facility] 12/11 07:45 Order name: Cardiac monitoring; Complete Time: 08:04 [facility] 12/11 07:45 Order name: EKG - Nurse/Tech; Complete Time: 08:53 [facility] 12/11 07:45 Order name: IV Saline Lock; Complete Time: 08:04 [facility] 12/11 07:45 Order name: Labs collected and sent; Complete Time: 08:04 [facility] 12/11 07:45 Order name: O2 Per Protocol; Complete Time: 07:49 [facility] 12/11 07:45 Order name: O2 Sat Monitoring; Complete Time: 07:49 [facility] 12/11 07:45 Order name: Urine Dipstick-Ancillary (obtain specimen); Complete Time: 08:28 [facility] 12/11 10:24 Order name: Diet Regular; Complete Time: 10:24 ph EC:25 Rate is 110 beats/min. Rhythm is regular. QRS Evans is Normal. DE interval is normal. jose roberto QRS interval is normal. QT interval is normal. No Q waves. T waves are Normal. No ST changes noted. Clinical impression: Sinus tachycardia and No evidence of ischemia. Interpreted by me. Reviewed by me. 08:50 Rate is 85 beats/min. Rhythm is regular. QRS Evans is Normal. DE interval is normal. QRS jose roberto interval is normal. QT interval is normal. No Q waves. T waves are Normal. No ST changes noted. Clinical impression: NSR w/ Non-specific ST/T Changes and No evidence of ischemia. Interpreted by me. Reviewed by me. Administered Medications: 08:28 Not Given (324 given by EMS): Aspirin 81 mg PO once ph 08:28 Not Given (Patient Refused): Pepcid (famotidine) 20 mg IVP once; dilute with 10 mL 0.9% ph NaCl; give over 2 minutes 14:01 Not Given (Patient Refused): Lopressor (metoprolol TARTRATE) 50 mg PO once ph 14:02 Not Given (Patient Refused): fentaNYL (PF) 25 mcg IVP once ph 14:02 Not Given (Patient Refused): Zofran (Ondansetron) 4 mg IVP once; over 2 minutes ph Disposition Summary: 12/11/22 08:38 Hospitalization Ordered Hospitalization Status: Observation jose roberto Location: Telemetry/MedSurg (observation) jose roberto Condition: Stable jose roberto Problem: new jose roberto Symptoms: have improved jose roberto Bed/Room Type: Standard jose roberto Provider: Layla Drummond(12/11/22 09:29) jose roberto Room Assignment: 230(12/11/22 13:55) em1 Diagnosis - Chest pain, unspecified jose roberto - Weakness jose roberto - Essential (primary) hypertension jose roberto - Tachycardia, unspecified jose roberto Forms: - Medication Reconciliation Form jose roberto - SBAR form jose roberto Signatures: Dispatcher [employer] EDParminder Bronson MD MD cha Ballard, Brenda RN RN bb Rafael Ross em1 Susi Vallejo RN RN sg5 Meeta Bates RN ph Corrections: (The following items were deleted from the chart) : 08:38 Justyn Gregory cha [facility] 09:29 09:19 Augie Fitzpatrick [facility] 13:55 08:38 [facility] em1
--- NOTE | 2022-12-11 08:39 | ER ---
Nurse's Notes [facility] Name: Julieth Barragan Age: 87 yrs Sex: Female : 1935 Arrival Date: 12/11/2022 Time: 06:50 Bed 17 Private MD: Diagnosis: Chest pain, unspecified;Weakness;Essential (primary) hypertension;Tachycardia, unspecified Presentation: 12/11 06:51 Chief complaint: EMS states: they were toned out for report of pt with chest pain for 2 bb days worsening this morning. Coronavirus screen: At this time, the client does not indicate any symptoms associated with coronavirus-19. Ebola Screen: No symptoms or risks identified at this time. Initial Sepsis Screen: Does the patient meet any 2 criteria? No. Patient's initial sepsis screen is negative. Does the patient have a suspected source of infection? No. Patient's initial sepsis screen is negative. Risk Assessment: Do you want to hurt yourself or someone else? Patient reports no desire to harm self or others. Onset of symptoms was December 09, 2022. 06:51 Method Of Arrival: EMS: [facility] bb 06:51 Acuity: RUKHSANA 3 bb 06:55 Care prior to arrival: Medication(s) given: ASA, 81 mg, x 4. bb Historical: - Allergies: 06:53 No Known Allergies; bb - Home Meds: 09:36 carbidopa-levodopa 25-100 mg oral TbER 1 tab 2 times per day for parkinsonism [Active]; sg5 pramipexole 0.5 mg oral tab 2 tabs 3 times per day [Active]; raloxifene 60 mg oral tab 1 tab once daily [Active]; aspirin 81 mg Oral cap 1 cap once daily [Active]; - PMHx: 06:53 High Cholesterol; Osteoporosis; Parkinsons; bb - Immunization history:: Client reports having NOT received the Covid vaccine. - Social history:: Smoking status: Patient denies any tobacco usage or history of. Screenin:29 Abuse screen: Denies threats or abuse. Nutritional screening: No deficits noted. ap3 Tuberculosis screening: No symptoms or risk factors identified. 08:21 [facility] ED Fall Risk Assessment (Adult) History of falling in the last 3 months, ph including since admission No falls in past 3 months (0 pts) Confusion or Disorientation No (0 pts) Intoxicated or Sedated No (0 pts) Impaired Gait No (0 pts) Mobility Assist Device Used No (0 pt) Altered Elimination No (0 pt) Score/Fall Risk Level 0 - 2 = Low Risk Oriented to surroundings, Maintained a safe environment, Hourly rounding (assess needs \T\ fall precautionary measures) done. Assessment: 07:33 General: Appears in no apparent distress. Behavior is calm, cooperative. Pain: ap3 Complains of pain in left shoulder Pain does not radiate. Pain began 2-3 days ago. Neuro: Level of Consciousness is awake, alert, obeys commands, Oriented to person, place, time, situation. Cardiovascular: Patient's skin is warm and dry. Respiratory: Airway is patent Respiratory effort is even, unlabored, Respiratory pattern is regular, symmetrical. 08:36 Reassessment: Patient appears in no apparent distress at this time. Patient and/or ph family updated on plan of care and expected duration. Pain level reassessed. Patient is alert, oriented x 3, equal unlabored respirations, skin warm/dry/pink. Pt resting comfortably, denies pain at this time, awaiting lab results, family at bedside. 09:37 Reassessment: Patient appears in no apparent distress at this time. Patient and/or ph family updated on plan of care and expected duration. Pain level reassessed. Patient is alert, oriented x 3, equal unlabored respirations, skin warm/dry/pink. Patient denies pain at this time. 10:51 Reassessment: Patient appears in no apparent distress at this time. Patient and/or ph family updated on plan of care and expected duration. Pain level reassessed. Patient is alert, oriented x 3, equal unlabored respirations, skin warm/dry/pink. Patient denies pain at this time. Vital Signs: 06:51 BP 162 / 75; Pulse 107; Resp 16 S; Temp 98(O); Pulse Ox 97% on R/A; Weight 56.7 kg (R); bb Height 5 ft. 0 in. (152.40 cm) (R); Pain 0/10; 08:29 BP 163 / 68; Pulse 87; Resp 18; Pulse Ox 98% on R/A; Pain 0/10; ph 09:37 BP 148 / 60; Pulse 94; Resp 18; Pulse Ox 99% on R/A; ph 10:51 BP 155 / 72; Pulse 72; Resp 18; Pulse Ox 98% on R/A; ph 14:02 BP 138 / 65; Pulse 88; Resp 18; Temp 97.2; Pulse Ox 96% on R/A; ph 06:51 Body Mass Index 24.41 (56.70 kg, 152.40 cm) bb Vitals: 08:29 Cardiac Rhythm Assessment Sinus rhythm. ph ED Course: 06:50 Patient arrived in ED. jb4 06:53 Triage completed. bb 06:53 Arm band placed on Patient placed in an exam room, on a stretcher, on title clerk, bb on pulse oximetry. EKG completed in triage. Results shown to MD. 07:09 Parminder Guardado MD is Attending Physician. jose roberto 07:12 Meeta Bates, VIGNESH is Primary Nurse. ph 07:29 Patient has correct armband on for positive identification. Bed in low position. Call ap3 light in reach. Side rails up X2. renal case manager on. Pulse ox on. NIBP on. 08:37 Jameson Jefferson MD is Hospitalizing Provider. jose roberto 08:54 No provider procedures requiring assistance completed. Patient admitted, IV remains in ph place. 09:19 Augie Fitzpatrick is Hospitalizing Provider. jose roberto 09:29 Layla Drummond MD is Hospitalizing Provider. jose roberto Administered Medications: 08:28 Not Given (324 given by EMS): Aspirin 81 mg PO once ph 08:28 Not Given (Patient Refused): Pepcid (famotidine) 20 mg IVP once; dilute with 10 mL 0.9% ph NaCl; give over 2 minutes 14:01 Not Given (Patient Refused): Lopressor (metoprolol TARTRATE) 50 mg PO once ph 14:02 Not Given (Patient Refused): fentaNYL (PF) 25 mcg IVP once ph 14:02 Not Given (Patient Refused): Zofran (Ondansetron) 4 mg IVP once; over 2 minutes ph Medication: 07:34 VIS not applicable for this client. ap3 Outcome: 08:38 Decision to Hospitalize by Provider. jose roberto 14:59 Patient left the ED. ph 14:59 Admitted to Tele accompanied by tech, family with patient, via wheelchair. ph 14:59 Condition: good 14:59 Instructed on the need for admit. Signatures: Parminder Guardado MD MD cha Ballard, Brenda, RN RN bb Meeta Bates, RN RN ph Guille Sarah, RN RN jb4 Laura Phillips RN RN ap3 Susi Vallejo RN RN sg5
[2022-12-11 08:47] LABS: Urine Bacteria None Seen /HPF (<20); Urine Mucus Slight /HPF (None Seen); Urine RBC <5 /HPF (None Seen)
[2022-12-11 09:00] LABS: AST/SGOT 13 U/L (15-37); Albumin 3.3 g/dL (3.4-5.0); Alkaline Phosphatase 43 U/L (45-117); BUN Blood Urea Nitrogen 16 mg/dL (7-18); Bicarbonate 27 mmol/L (21-32); Bilirubin Direct 0.1 mg/dL (0-0.2); Bilirubin Total 0.5 mg/dL (0.2-1.0); Glomerular Filtration Rate 83 ml/min (=/>90); Glucose Level 104 mg/dL (74-106); Magnesium 2.3 mg/dL (1.6-2.4); NT PRO-BNP 95 pg/mL (<450); Potassium 4.5 mmol/L (3.5-5.1); Protein, Total 6.4 g/dL (6.4-8.2); Sodium Level 139 mmol/L (136-145); Troponin High Sensitivity 7.9 pg/mL (<58.9)
[2022-12-11 09:06] LABS: ALT/SGPT < 10 U/L (13-56)
[2022-12-11 09:18] LABS: SARS-COV-2 RT PCR NEGATIVE (NEGATIVE)
--- NOTE | 2022-12-11 10:03 | RAD REPORT ---
EXAM DESCRIPTION: CTAngio Aorta For Dissection - 12/11/2022 9:50 am CLINICAL HISTORY: Abd pain COMPARISON: No comparisons TECHNIQUE: CTA of the chest, abdomen, and pelvis was performed with IV contrast. MIPs were created. All CT scans are performed using dose optimization technique as appropriate and may include automated exposure control or mA/KV adjustment according to patient size. FINDINGS: Thorax: Chest Wall: Small nonspecific thyroid nodules. Bilateral breast prostheses. Lungs: Subsegmental atelectasis or scarring in lung bases. Pleura: No effusions or pneumothorax. Roxie/Mediastinum: No lymphadenopathy. Aorta/Pulmonary Arteries: Unremarkable Heart: Normal size. Abdomen/Pelvis: Liver: Hepatic steatosis. Non masslike area of either hyperattenuation or hypervascularity along the inferior margin of the right hepatic lobe. This is of doubtful clinical significance. Biliary: Cholecystectomy. Stomach: No significant focal abnormality. Duodenum: No significant focal abnormality. Pancreas: Diffuse prominence of the pancreatic duct. No masses are identified. No change in caliber. Spleen: No significant abnormality. Adrenal: No suspicious lesions. Kidney/ureter: No hydronephrosis. Too small to characterize and/or benign appearing renal lesions are noted. Retroperitoneum: No retroperitoneal adenopathy. Vascular: No aneurysm. Atherosclerosis . Bowel: No significant focal abnormality. Peritoneum: No ascites or free air. Bladder: Grossly unremarkable. Reproductive: No adnexal masses. Hysterectomy. Bones: No acute fracture. Pectus excavatum. Multilevel degenerative changes are present in the spine. Other: n/a IMPRESSION: No evidence of aortic aneurysm, aortic dissection, or pulmonary embolus. No acute findin gs are present within the chest, abdomen, or pelvis.
[2022-12-11] MEDS ORDERED: ONDANSETRON 4 MG/2 ML VIAL IV PRN (10:28)
[2022-12-11] MEDS ORDERED: ACETAMINOPHEN 325 MG TABLET PO PRN (10:28)
[2022-12-11] MEDS ORDERED: HYDROCODONE/APAP 5/325 MG TAB PO PRN (10:43)
--- NOTE | 2022-12-11 10:44 | P.HP ---
Certification for Inpatient Patient admitted to: Observation With expected LOS: <2 Midnights Patient will require the following post-hospital care: None Practitioner: I am a practitioner with admitting privileges, knowledge of patient current condition, hospital course, and medical plan of care. Services: Services provided to patient in accordance with Admission requirements found in Title 42 Section 412.3 of the Code of Federal Regulations Patient History Date of Service: 12/11/22 Reason for admission: Left shoulder pain History of Present Illness: Patient is an 87-year-old female with a past medical history significant for hypertension, Parkinson's disease, hyperlipidemia who presents with complaint of left shoulder pain. Patient reported that she had a one-time episode of left shoulder pain 2 days ago which resolved after a while. This morning she started having same pain with lasted for a while. Patient rated pain as 7/10 in se verity and described pain as aching in quality. Patient reported that she had a one-time episode of vomiting 2 days ago. Patient reported associated signs and symptoms of fatigue, weakness and nausea. Patient denies any other signs or symptoms. Symptoms are aggravated or relieved by nothing. Patient decided to present to the hospital for medical evaluation. Of note, patient was also noted to be hypertensive and tachycardic on presentation to the ER. Allergies No Known Allergies Allergy (Verified 04/11/16 17:32) Home Medications: Calcium Carbonate/Vitamin D3 [Calcium 600-D3 20Mcg(800 Unit)] 1 tab PO DAILY 09/26/19 Carbidopa/Levodopa [Carbidopa-Levo 25-100 mg Odt] 1 tab PO BID 09/26/19 Cholecalciferol (Vitamin D3) [Vitamin D3] 1 tab PO DAILY 09/26/19 Docosahexanoic AC/Epa [Fish Oil 1,000 MG*] 1 tab PO DAILY 09/26/19 Raloxifene HCl [Evista*] 1 tab PO DAILY 09/26/19 Turmeric/Turmeric Root Extract [Turmeric 500 mg Capsule] 1 tab PO DAILY 09/26/19 Amlodipine [Norvasc*] 10 mg PO DAILY #30 tab 09/27/19 Aspirin 81 mg PO DAILY #30 tab.chew 09/27/19 Carbamide Peroxide [Debrox] 15 ml OT BID #1 drops 09/27/19 Levofloxacin [Levaquin] 250 mg PO DAILY #3 tablet 09/27/19 - Past Medical/Surgical History Diabetic: No -: PARKINSONS -: CHOLESTEROL -: OSTEOPOROSIS -: Cholecystectomy -: HYSTERECTOMY -: DOUBLE MASTECTOMY WITH RECONSTRUCTION X2 - Family History Mother Notes: BREAST CA Father -: Heart disease, Stroke Notes: [place] - Social History Smoking Status: Never smoker Alcohol use: No CD- Drugs: No Caffeine use: Yes Place of Residence: Home Review of Systems General: Weakness, Other (fatigue ) Eyes: Unremarkable ENT: Unremarkable Respiratory: Unremarkable Cardiovascular: Unremarkable Gastrointestinal: Nausea, Vomiting Genitourinary: Unremarkable Musculoskeletal: Shoulder Pain Integumentary: Unremarkable Neurological: Unremarkable Lymphatics: Unremarkable Physical Examination - Physical Exam General: Alert, In no apparent distress, Oriented x3, Cooperative HEENT: Atraumatic, PERRLA, Mucous membr. moist/pink, EOMI, Sclerae nonicteric Neck: Supple, 2+ carotid pulse no bruit, No LAD, Without JVD or thyroid abnormality Respiratory: Clear to auscultation bilaterally, Normal air movement Cardiovascular: No edema, Regular rate/rhythm, Normal S1 S2 Capillary refill: <2 Seconds Gastrointestinal: Normal bowel sounds, Soft and benign, No tenderness Musculoskeletal: No clubbing, No swelling, No tenderness Integumentary: No rashes, No breakdown, No significant lesion, No tenderness/swelling Neurological: Normal speech, Normal tone, Normal affect Lymphatics: No axilla or inguinal lymphadenopathy - Studies Laboratory Data (last 24 hrs) 12/11/22 08:03: PT 10.1, INR 0.92 12/11/22 08:03: WBC 6.40, Hgb 14.1, Hct 42.3, Plt Count 243 12/11/22 08:03: Sodium 139, Potassium 4.5, BUN 16, Creatinine 0.71, Glucose 104, Magnesium 2.3, Total Bilirubin 0.5, AST 13 L, ALT < 10 L, Alkaline Phosphatase 43 L Assessment and Plan - Plan --Hypertensive urgency. Patient given metoprolol in ER. Patient was initially tachycardic on presentation. Serial troponins negative so far. We will continue to trend troponin levels. Bpo Specialist consulted in the ER by ER doctor. Echocardiogram pending to assess cardiac structures and functions. Continue aspirin and home medications. We will await further recommendation from building services engineer. -- Left shoulder pain. CT dissection negative for any acute findings. Left shoulder x-ray pending. Patient being worked up to rule out ACS. We will manage pain with current pain medication regimen -- Parkinson's disease. Continue home medication. -- Hyperlipidemia. Patient placed on statin. --Nausea and vomiting. Antiemetics on board. Continue supportive care --CKD 2. Stable. We will continue monitor renal functions. --DVT prophylaxis with Lovenox subQ. Discharge Plan: Home Plan to discharge in: 48 Hours - Advance Directives Does patient have a Living Will: Yes Does patient have a Durable POA for Healthcare: Yes - Code Status/Comfort Care Code Status Assessed: Yes Physician Review: Patient Assessed, Agree with Above Assessment and Plan Critical Care: No
--- NOTE | 2022-12-11 11:29 | RAD REPORT ---
EXAM DESCRIPTION: RAD - Shoulder Left 2 View - 12/11/2022 11:16 am CLINICAL HISTORY: Left shoulder pain COMPARISON: No comparisons FINDINGS/IMPRESSION: No acute fracture. No malalignment. No significant focal degenerative changes. Triangular ossific densities adjacent to the greater tuberosity. These are of uncertain etiology. Srheyas cific tendinitis is possible though the appearance is atypical.
[2022-12-11 12:43] LABS: Magnesium 2.3 mg/dL (1.6-2.4); Phosphorus 3.6 mg/dL (2.5-4.9); Thyroid Stimulating Hormone 0.899 uIU/mL (0.358-3.740)
[2022-12-11 14:10] VITALS: BMI 24.5
--- NOTE | 2022-12-11 15:20 | EKG ---
Test Date: 2022-12-11 Test Time: 06:44:36 Maintenance Engineer [employer]: NEYDA MEASUREMENT RESULTS: Intervals: Rate: 110 CO: 186 QRSD: 78 QT: 340 QTc: 460 Axton: P: 73 CO: 186 QRS: 38 T: 63 INTERPRETIVE STATEMENTS: Sinus tachycardia Biatrial enlargement Abnormal ECG Compared to ECG 09/25/2019 19:55:49 Sinus rhythm no longer present Electronically Signed On 12-11-22 15:19:13 INJECTION MACHINE OPERATOR by Brien Casanova
[2022-12-11] MEDS: METOPROLOL TAR 25 MG TAB PO SCH (16:21)
[2022-12-11] MEDS: ENOXAPARIN 40 MG/0.4 ML SQ SCH (16:21)
[2022-12-11 18:46] LABS: Specific Gravity > 1.030 (1.005-1.030); Transitional Epithelial <5 /HPF (None Seen); Urine Bacteria None Seen /HPF (<20); Urine Bilirubin NEGATIVE (Negative); Urine Blood Negative (Negative); Urine Clarity Clear (Clear); Urine Color Light-Yellow (Yellow); Urine Glucose NEGATIVE (Negative); Urine Mucus Slight /HPF (None Seen); Urine Protein NEGATIVE (Negative); Urine RBC <5 /HPF (None Seen); Urine Urobilinogen Normal (Normal)
[2022-12-11] MEDS ORDERED: ATORVASTATIN 40 MG TAB PO SCH (21:00)
[2022-12-11] MEDS: FAMOTIDINE 20 MG/2 ML VIAL IV SCH (21:48)
--- NOTE | 2022-12-11 22:06 | CON ---
Date of Consultation: 12/11/2022 Reason For Consultation: Chest pain. History Of Present Illness: 87-year-old female, history of hypertension, Parkinson's disease, presen alexx with pain to the left shoulder and left upper chest, started about 2 days ago, she had 1 episode and then she had another episode, this morning. Rated at 7/10. Denies having diaphoresis, nausea, o r vomiting with it and no shortness of breath. Past Medical History: As outlined above in the HPI. Medications: Refer reconciliation sheet for detailed list. Allergies: NO KNOWN DRUG ALLERGIES. Family History: No premature coronary artery disease or cancer. Social History: She does not smoke or drink. Does not use any drugs. Review of Systems: All systems reviewed. They were negative except as mentioned in HPI. Physical Examination: Vital Signs: Reviewed. Head and Neck: Pupils are equal, reactive to light. Intact eye movements. No JVD. No cervical lym phadenopathy. Neck is supple. Thyroid is not enlarged. Lungs: Clear to auscultation bilaterally. No rhonchi, wheezing, or crackles. No accessory muscle u se. Heart: Regular rate and rhythm. No extra sounds. Abdomen: Soft, nontender. Bowel sounds positive. No organomegaly. No masses or hernia. No rigidi ty or rebound. Extremities: No edema, clubbing, or cyanosis. Intact pulses. Skin: No rash. Neurologic: Alert, awake, oriented x3. No acute focal deficits appreciated. Investigations: Cardiac enzymes x3 are negative. BUN 16, creatinine 0.71, hemoglobin is 14.1. Assessment And Recommendations: 1.Left upper chest pain and shoulder pain and cardiac enzymes are negative, and patient is chest mamadou n free. From Cardiology standpoint, this patient can be released and I will plan for outpatient stre ss test and an echo. 2.Hypertension. Blood pressure is controlled. Continue current management. 3.Dyslipidemia. Continue statin. SR/MODL Voice ID: [id number] Report ID: [id number]
[2022-12-12] MEDS ORDERED: HYDRALAZINE HCL 20 MG/ML VIAL IV PRN (01:36)
[2022-12-12 02:16] VITALS: O2SAT 96
[2022-12-12 04:04] LABS: Absolute Lymphocytes (CBC) 1.5 K/uL (0.7-4.9); Hematocrit 42.3 % (36.0-45.0); Lymphocytes % 20.5 % (15.3-44.8); MCV 94.4 fL (80-100); RBC Red Blood Cell Count 4.47 M/uL (3.86-4.86)
[2022-12-12 04:18] LABS: Potassium 3.9 mmol/L (3.5-5.1)
[2022-12-12] MEDS: METOPROLOL TAR 25 MG TAB PO SCH ×2 (06:03→17:59)
[2022-12-12] MEDS: FAMOTIDINE 20 MG/2 ML VIAL IV SCH (08:36)
[2022-12-12] MEDS: ENOXAPARIN 40 MG/0.4 ML SQ SCH (08:36)
[2022-12-12] MEDS ORDERED: POTASSIUM CL SA 10 MEQ TAB PO ONE (09:00)
[2022-12-12] MEDS ORDERED: ASPIRIN EC 81 MG TAB PO SCH (09:00)
[2022-12-12] MEDS ORDERED: AMLODIPINE 10 MG TAB PO SCH (09:00)
[2022-12-12] MEDS ORDERED: LORazepam 2 MG/ML VIAL IV ONE (09:04)
--- NOTE | 2022-12-12 15:52 | PN ---
Date of Progress Note: 12/12/2022 Subjective: Seen by bedside. No chest pain. Cardiac enzymes are negative. Review of Systems: No chest pain, shortness of breath, orthopnea, or cough. No nausea, vomiting, diarrhea. No abdomina l pain. No history of urinary urgency. All other systems reviewed are negative. Physical Examination: Vital Signs: Reviewed. Head and Neck: Pupils are equal, reactive to light. Intact eye movements. No JVD. No cervical lym phadenopathy. Neck is supple. Thyroid is not enlarged. Lungs: Clear to auscultation bilaterally. No rhonchi, wheezing, or crackles. No accessory muscle u se. Heart: Regular rate and rhythm. No extra sounds. Abdomen: Soft, nontender. Bowel sounds positive. No organomegaly. No masses or hernia. No rigidi ty or rebound. Extremities: No edema, clubbing, or cyanosis. Intact pulses. Skin: No rash. Neurologic: Alert, awake, oriented x3. No acute focal deficits appreciated. Investigations: Cardiac enzymes x3 are negative. BUN 17, creatinine is 0.66. Assessment/recommendation: 1.Left upper chest and shoulder pain. Cardiac enzymes are negative. Likely, this is not cardiac. Patient can be released and we will do a stress test and echo as an outpatient. 2.Dyslipidemia. Continue statin. 3.Hypertension. Blood pressure is uncontrolled. Recommend to add hydrochlorothiazide 12.5 mg to he r medications. SR/MODL Voice ID: [id number] Report ID: [id number]
--- NOTE | 2022-12-12 16:32 | EKG ---
Test Date: 2022-12-11 Test Time: 08:47:36 Plate Colorer: PH MEASUREMENT RESULTS: Intervals: Rate: 85 MN: 196 QRSD: 74 QT: 370 QTc: 440 Ferdinand: P: 70 MN: 196 QRS: -5 T: 47 INTERPRETIVE STATEMENTS: Normal sinus rhythm Nonspecific T wave abnormality Abnormal ECG Compared to ECG 12/11/2022 06:44:36 T-wave abnormality now present Sinus tachycardia no longer present Atrial abnormality no longer present Electronically Signed On 12-12-22 16:29:48 GROUP MARKETING VP by Brien Casanova
[2022-12-12 16:56] VITALS: BP 116/56; TEMP 97.6
--- NOTE | 2022-12-12 20:46 | RAD REPORT ---
EXAM DESCRIPTION: MRI - Shoulder Left Wo Cont - 12/12/2022 5:05 pm CLINICAL HISTORY: Left shoulder pain COMPARISON: Angio Aorta For Dissection dated 12/11/2022; Shoulder Left 2 View dated 12/11/2022 FINDINGS: Significant motion artifact is present. The AC joint demonstrates mild osseous and capsular hypertrophy. The acromion process is mildly conca ve. The rotator cuff demonstrates a large full-thickness tendon tear anteriorly. No tendon retraction. The subscapularis appears intact. The biceps tendon lies within the bicipital groove. Degenerative change involves the glenohumeral joint with numerous paralabral cysts. No aggressive bony lesion. No fracture or dislocation. No joint effusion is present. IMPRESSION: Suspected full-thickness tear of the supraspinatus tendon anteriorly. No tendon retracti on. Mild AC joint and glenohumeral joint arthritic changes.
[2022-12-12] MEDS ORDERED: FAMOTIDINE 20 MG TAB PO SCH (21:00)
== END 2022-12-12 18:39 | disposition home or self-care (01) ==
LOC: ER 06:48 → ERHOLD 08:41 → 2ND 14:52
PROVIDERS: ADMIT Hospitalist; ATTEND Hospitalist
DX: R07.9 Chest pain, unspecified (principal); M25.512 Pain in left shoulder; R00.0 Tachycardia, unspecified; I16.0 Hypertensive urgency; G20 Parkinson's disease; E78.5 Hyperlipidemia, unspecified; R11.2 Nausea with vomiting, unspecified; N18.2 Chronic kidney disease, stage 2 (mild); Z20.822 Contact with and (suspected) exposure to COVID-19
CPT/HCPCS: 93005 ×2; 85025 ×2; 81001; 80048 ×2; 36415; 83735 ×2; 84100; 85610; 80076; 84443; 84484 ×3; 84439; 83880; 0240U; 71275; 74175; 71045; 73030; 73221; 99285; Q9967; J0360; J1650 ×2; J3010; J2405; 81003; 81015; G0378

== ENCOUNTER 2024-07-24 09:45 | Emergency (ER) | payer OTHER ==
--- OUTSIDE RECORDS SUMMARY | 2024-07-24 09:49 | XMS REPORT | Continuity of Care Document ---
Author Name Unknown Address [address] [place], [place] [address]ect Address [address] [place] [id number] Care Team Providers Care Distributor Advertising Material Name Role Phone Unavailable Unavailable Unavailable
--- NOTE | 2024-07-24 11:25 | RAD REPORT ---
EXAMINATION: Knee Right 3 View CLINICAL INDICATION: Female, 89 years old. PAIN COMPARISON: No prior exam. FINDINGS: No acute fracture. No malalignment/dislocation. Enthesophyte along the proximal pole of the patella. Other: n/a IMPRESSION: No acute osseous abnormality.
--- NOTE | 2024-07-24 11:38 | ER ---
Nurse's Notes [facility] Name: Julieth Barragan Age: 89 yrs Sex: Female : 1935 Arrival Date: 07/24/2024 Time: 09:45 Bed 14 Private MD: Diagnosis: Pain in right knee Presentation: 07/24 09:59 Chief complaint: Right knee pain and swelling x 2 days. Denies injury. Coronavirus hb screen: At this time, the client does not indicate any symptoms associated with coronavirus-19. Ebola Screen: No symptoms or risks identified at this time. Initial Sepsis Screen: Does the patient meet any 2 criteria? No. Patient's initial sepsis screen is negative. Does the patient have a suspected source of infection? No. Patient's initial sepsis screen is negative. Risk Assessment: Do you want to hurt yourself or someone else? Patient reports no desire to harm self or others. Onset of symptoms was July 22, 2024. 09:59 Method Of Arrival: Wheelchair hb 09:59 Acuity: RUKHSANA 4 hb Historical: - Allergies: 10:01 No Known Allergies; hb - Home Meds: 10: aspirin 81 mg Oral cap 1 cap once daily [Active]; carbidopa-levodopa 25-100 mg Oral hb TbER 1 tab 2 times per day for Parkinsonism [Active]; pramipexole 0.5 mg Oral tab 2 tabs 3 times per day [Active]; raloxifene 60 mg Oral tab 1 tab once daily [Active]; Tumeric 60 mg Oral tab 1 tab once daily [Active]; Vitamin D Oral daily [Active]; Fish Oil oral daily [Active]; Multivitamin Women 50 Plus oral [Active]; - PMHx: 10:01 High Cholesterol; Osteoporosis; Parkinsons; hb - Immunization history:: Adult Immunizations up to date. - Infectious Disease History:: Denies. - Social history:: Smoking status: Patient denies any tobacco usage or history of. - Family history:: not pertinent. Screenin:05 [place] ED Fall Risk Assessment (Adult) History of falling in the last 3 months, iw including since admission No falls in past 3 months (0 pts) Confusion or Disorientation No (0 pts) Intoxicated or Sedated No (0 pts) Impaired Gait No (0 pts) Mobility Assist Device Used No (0 pt) Altered Elimination No (0 pt) Score/Fall Risk Level 0 - 2 = Low Risk Oriented to surroundings. Abuse screen: Denies injuries from another. Nutritional screening: No deficits noted. Tuberculosis screening: No symptoms or risk factors identified. Assessment: 10:03 General: Appears in no apparent distress. Behavior is calm, cooperative. Pain: iw Complains of pain in right knee. Neuro: Level of Consciousness is awake, alert, obeys commands, Oriented to person, place, time, situation. Cardiovascular: Patient's skin is warm and dry. Respiratory: Respiratory effort is even, unlabored, Respiratory pattern is regular, symmetrical. GI: Abdomen is non-distended. Derm: Skin is fragile, is thin, Skin is. Musculoskeletal: Range of motion: limited in right knee Swelling present in right knee. Vital Signs: 09:59 BP 151 / 62; Pulse 83; Resp 16; Temp 98.3(O); Pulse Ox 100% on R/A; Weight 58.06 kg; hb Height 5 ft. 0 in. ; Pain 8/10; 11:15 BP 151 / 55; Pulse 76; Resp 16; Pulse Ox 97% on R/A; iw 09:59 Body Mass Index 25.00 (58.06 kg, 152.4 cm) hb 09:59 Pain Scale: Adult hb ED Course: 09:49 Patient arrived in ED. im 09:52 Quinten Benjamin MD is Attending Physician. rt 09:53 Sailaja Boggs, RN is Primary Nurse. iw 10:01 Triage completed. hb 10:03 Arm band placed on. hb 10:23 Patient has correct armband on for positive identification. Provided Education on: need iw for xray. Warm blanket given. Pillow given. 11:18 Knee Right 3 View XRAY In Process Unspecified. EDMS 11:45 Ice pack to injury. iw 11:55 No provider procedures requiring assistance completed. Patient did not have IV access iw during this emergency room visit. Administered Medications: 11:51 Drug: Acetaminophen PO 1000 mg PO once Route: PO; iw 11:52 Follow up: Response: Medication administered at discharge. iw Medication: 10:05 VIS not applicable for this client. iw Outcome: 11:38 Discharge ordered by MD. rt 11:55 Discharged to home via wheelchair, with family, iw 11:55 Condition: good 11:55 Discharge instructions given to patient, family, Instructed on discharge instructions, follow up and referral plans. Demonstrated understanding of instructions, follow-up care, 11:56 Patient left the ED. iw Signatures: Dispatcher [employer] Sailaja Chirinos RN RN iw Baxter, Heather, RN RN hb Turkington, Ryan, MD MD rt Sarah Wilhelm
--- NOTE | 2024-07-24 11:38 | EDPHYS ---
Physician Documentation [facility] Name: Julieth Barragan Age: 89 yrs Sex: Female : 1935 Arrival Date: 07/24/2024 Time: 09:45 Bed 14 Private MD: ED Physician Quinten Benjamin HPI: 07/24 10:07 This 89 yrs old Female presents to ER via Wheelchair with complaints of Knee swelling, rt Knee Pain. 10:07 Patient presents to the ED with atraumatic right knee pain starting yesterday. Pain is rt improving when she is not bearing weight, worsens when she steps on it. Reports a swelling to the knee but no overlying skin changes. The patient denies other swelling, other pain, acute complaints, symptoms are aching in nature, nonradiating, mild in severity, no other aggravating or alleviating factors.. Historical: - Allergies: 10: No Known Allergies; hb - Home Meds: 10:01 aspirin 81 mg Oral cap 1 cap once daily [Active]; carbidopa-levodopa 25-100 mg Oral hb TbER 1 tab 2 times per day for Parkinsonism [Active]; pramipexole 0.5 mg Oral tab 2 tabs 3 times per day [Active]; raloxifene 60 mg Oral tab 1 tab once daily [Active]; Tumeric 60 mg Oral tab 1 tab once daily [Active]; Vitamin D Oral daily [Active]; Fish Oil oral daily [Active]; Multivitamin Women 50 Plus oral [Active]; - PMHx: 10:01 High Cholesterol; Osteoporosis; Parkinsons; hb - Immunization history:: Adult Immunizations up to date. - Infectious Disease History:: Denies. - Social history:: Smoking status: Patient denies any tobacco usage or history of. - Family history:: not pertinent. ROS: 10:07 Constitutional: Negative for fever, chills, and weight loss, Cardiovascular: Negative rt for chest pain, palpitations, and edema, Respiratory: Negative for shortness of breath, cough, wheezing, and pleuritic chest pain, Abdomen/GI: Negative for abdominal pain, nausea, vomiting, diarrhea, and constipation, Skin: Negative for injury, rash, and discoloration, Neuro: Negative for headache, weakness, numbness, tingling, and seizure, 10:07 MS/extremity: Positive for pain, swelling, Exam: 10:07 Constitutional: This is a well developed, well nourished patient who is awake, alert, rt and in no acute distress. Head/Face: Normocephalic, atraumatic. Skin: Warm, dry with normal turgor. Normal color with no rashes, no lesions, and no evidence of cellulitis. Neuro: Awake and alert, GCS 15, oriented to person, place, time, and situation. Cranial nerves II-XII grossly intact. Motor strength 5/5 in all extremities. Sensory grossly intact. Cerebellar exam normal. Normal gait. Psych: Awake, alert, with orientation to person, place and time. Behavior, mood, and affect are within normal limits. 10:07 Musculoskeletal/extremity: Swelling noted to right knee, no overlying skin changes, minimal warmth noted. No other swelling noted. Mild tenderness to the knee, no deformities, pulses, motor, sensation intact. Vital Signs: 09:59 BP 151 / 62; Pulse 83; Resp 16; Temp 98.3(O); Pulse Ox 100% on R/A; Weight 58.06 kg; hb Height 5 ft. 0 in. ; Pain 8/10; 11:15 BP 151 / 55; Pulse 76; Resp 16; Pulse Ox 97% on R/A; iw 09:59 Body Mass Index 25.00 (58.06 kg, 152.4 cm) hb 09:59 Pain Scale: Adult hb MDM: 10:00 Patient medically screened. rt 11:40 Differential Diagnosis Arthritis, fracture. Data reviewed: vital signs, nurses notes, rt radiologic studies. I considered the following discharge prescriptions or medication management in the emergency department Medications were administered in the Emergency Department. See MAR. Independent interpretation of the following test(s) in the Emergency Department X-Ray: My interpretation is No fracture seen on my interpretation of x-ray images. Test considered but Not performed: Labs: No overlying skin changes, only minimal warmth, I have a very low suspicion for septic arthritis clinically. I instructed patient to return should she develop any signs or symptoms of septic arthritis.. Care significantly affected by the following chronic conditions: Osteoporosis. Counseling: I had a detailed discussion with the patient and/or guardian regarding the historical points, exam findings, and any diagnostic results supporting the discharge/admit diagnosis, radiology results, the need for outpatient follow up. Response to treatment: the patient's symptoms have mildly improved after treatment. 07/24 10:04 Order name: Knee Right 3 View XRAY; Complete Time: 11:28 rt 07/24 11:39 Order name: Darci Wrap; Complete Time: 11:51 rt 07/24 11:39 Order name: Ice pack; Complete Time: 11:51 rt Administered Medications: 11:51 Drug: Acetaminophen PO 1000 mg PO once Route: PO; iw 11:52 Follow up: Response: Medication administered at discharge. iw Disposition Summary: 07/24/24 11:38 Discharge Ordered Notes: Location: Home rt Problem: new rt Symptoms: have improved rt Condition: Stable rt Diagnosis - Pain in right knee rt Followup: rt - With: Private Physician - When: 2 - 3 days - Reason: Discharge Instructions: - Discharge Summary Sheet rt - Acute Knee Pain, Adult rt Forms: - Medication Reconciliation Form rt - Antibiotic Education rt - Prescription Opioid Use rt - Patient Portal Instructions rt - Leadership Thank You Letter rt Signatures: Dispatcher [employer] Sailaja Chirinos RN RN iw Baxter, Heather, RN RN hb Turkington, Ryan, MD MD rt
[2024-07-24] MEDS ORDERED: ACETAMINOPHEN 500 MG TAB ONE (11:43)
[2024-07-24 12:03] VITALS: TEMP 98.3
[2024-07-24 12:04] VITALS: BP 151/55; O2SAT 97
== END 2024-07-24 11:56 | disposition home or self-care (01) ==
LOC: ER 09:45
DX: M25.561 Pain in right knee (principal)
CPT/HCPCS: 99283

== ENCOUNTER 2025-02-17 14:04 | Emergency (ER) | payer OTHER ==
--- OUTSIDE RECORDS SUMMARY | 2025-02-17 14:07 | XMS REPORT | Continuity of Care Document ---
Author Name Unknown Address [address] [place] [id number] [facility] Address [address] [place] [id number] Care Team Providers Care Shipper And Receiving Name Role Phone Unavailable Unavailable Unavailable
[2025-02-17] MEDS ORDERED: ACETAMINOPHEN 500 MG TAB ONE (15:10)
--- NOTE | 2025-02-17 15:48 | RAD REPORT ---
EXAM: CT brain without contrast HISTORY: fall, head contusion COMPARISON: None TECHNIQUE: Multiple contiguous axial images were obtained and a CT of the brain without contrast. Sag ittal and coronal reformats were performed. One or more of the following dose reduction techniques were used: Automated exposure control, adjust ment of the mA and/or kV according to patient size, and/or iterative reconstruction. FINDINGS: No evidence of hydrocephalus, intracranial hemorrhage, or extra-axial fluid collection. Moderate brain atrophy with moderate periventricular and deep white matter chronic microvascular isc hemic changes present. No evidence of midline shift or areas of brain edema. The calvarium is intact. The visualized paranasal sinuses and mastoid air cells are essentially clear . Left frontal scalp hematoma. EXAM: CT of the cervical spine without contrast HISTORY: Neck pain, injury fall, head contusion TECHNIQUE: Multiple contiguous axial images were obtained in a CT of the cervical spine without contr ast. Sagittal and coronal reformats were performed. FINDINGS: The vertebral bodies demonstrate normal height and alignment. No evidence of acute fracture or subluxation.. Moderate mid and lower cervical degenerative change. No prevertebral soft tissue swelling is seen. Mild bilateral carotid atherosclerosis. The posterior facets are well aligned. Normal alignment of the skull base with the cervical spine is seen. The lung apices are unremarkable. COMBINED IMPRESSION: No evidence of acute intracranial abnormality. No evidence of acute osseous abnormality of the cervical spine.
--- NOTE | 2025-02-17 16:01 | ER ---
Nurse's Notes [facility] Name: Julieth Barragan Age: 89 yrs Sex: Female : 1935 Arrival Date: 02/17/2025 Time: 14:04 Bed 6 Private MD: Diagnosis: Contusion of unspecified part of head, initial encounter;Fall from chair, initial encounter Presentation: 02/17 14:37 Chief complaint: EMS states: fall from sitting, hx parkinsons, hematoma to left side of aa5 forehead, negative LOC. 14:37 Coronavirus screen: At this time, the client does not indicate any symptoms associated aa5 with coronavirus-19. Ebola Screen: Patient denies travel to an Ebola-affected area in the 21 days before illness onset. Initial Sepsis Screen: Does the patient meet any 2 criteria? No. Patient's initial sepsis screen is negative. Does the patient have a suspected source of infection? No. Patient's initial sepsis screen is negative. Risk Assessment: Do you want to hurt yourself or someone else? Patient reports no desire to harm self or others. Onset of symptoms was February 17, 2025. 14:37 Acuity: RUKHSANA 2 aa5 14:37 Method Of Arrival: EMS: [facility] aa5 14:37 Transition of care: [facility]. aa5 Historical: - Allergies: 14:37 Hydroxyzine; (Face flushing); aa5 14:37 donepezil (dizziness); aa5 - PMHx: 14:37 High Cholesterol; Osteoporosis; Parkinsons; Dementia; aa5 - Immunization history:: Adult Immunizations unknown. - Infectious Disease History:: Denies. - Social history:: Smoking status: Patient denies any tobacco usage or history of. Screenin:40 [facility] ED Fall Risk Assessment (Adult) History of falling in the last 3 months, aa5 including since admission Yes- fall prone (multiple falls) (3 pts) Confusion or Disorientation Yes (5 pts) Intoxicated or Sedated No (0 pts) Impaired Gait Yes (1 pt) Mobility Assist Device Used Yes (1 pt) Altered Elimination No (0 pt) Score/Fall Risk Level 3 or more points = High Risk Oriented to surroundings, Maintained a safe environment, Educated pt \T\ family on fall prevention, incl call for assistance when getting out of bed, Assessed \T\ reinforced patient's understanding of fall precautions. Abuse screen: Denies threats or abuse. Nutritional screening: No deficits noted. Tuberculosis screening: No symptoms or risk factors identified. Assessment: 14:37 General: Appears comfortable, Behavior is calm, cooperative. Pain: Denies pain. Neuro: aa5 Level of Consciousness is awake, alert, obeys commands, Oriented to person, place, situation, [place] are equal bilaterally Moves all extremities. Speech is normal, Facial symmetry appears normal. Cardiovascular: Patient's skin is warm and dry. Respiratory: Airway is patent Respiratory effort is even, unlabored, Respiratory pattern is regular, symmetrical. GI: No signs and/or symptoms were reported involving the gastrointestinal system. : No signs and/or symptoms were reported regarding the genitourinary system. EENT: No signs and/or symptoms were reported regarding the EENT system. Derm: Skin is pink, warm \T\ dry. Large hematoma noted to left side of forehead. Musculoskeletal: Range of motion: intact in all extremities. 15:14 Reassessment: Patient is alert, oriented x 3, equal unlabored respirations, skin aa5 warm/dry/pink. 17:10 Reassessment: Patient is alert, oriented x 3, equal unlabored respirations, skin aa5 warm/dry/pink. Vital Signs: 14:37 BP 184 / 79; Pulse 68; Resp 18 S; Temp 97.5(TE); Pulse Ox 99% on R/A; aa5 15:14 BP 176 / 65; Pulse 70; Resp 16 S; Pulse Ox 99% on R/A; aa5 17:00 BP 174 / 62; Pulse 72; Resp 18 S; Pulse Ox 99% on R/A; aa5 ED Course: 14:37 Patient arrived in ED. aa5 14:37 Arm band placed on Patient placed in an exam room, on a stretcher. aa5 14:37 Patient has correct armband on for positive identification. Bed in low position. Call aa5 light in reach. Side rails up X2. Pulse ox on. NIBP on. 14:38 Parminder Abrams PA is PHCP. cp 14:38 Bj Feliciano MD is Attending Physician. cp 14:47 Triage completed. aa5 14:47 Tiff Bartlett, VIGNESH is Primary Nurse. aa5 15:30 CT Head C Spine In Process Unspecified. EDMS 17:10 No provider procedures requiring assistance completed. Patient did not have IV access aa5 during this emergency room visit. Administered Medications: 15:13 Drug: Acetaminophen PO 1000 mg PO once Route: PO; aa5 15:45 Follow up: Response: No adverse reaction aa5 Medication: 14:50 VIS not applicable for this client. aa5 Outcome: 16:00 Discharge ordered by MD. lockhart 17:10 Discharged to home via wheelchair, with family, aa5 17:10 Condition: stable 17:10 Discharge instructions given to patient, family, Instructed on discharge instructions, follow up and referral plans. Demonstrated understanding of instructions, follow-up care, 17:12 Patient left the ED. aa5 Signatures: Dispatcher [employer] Tiff Bauman RN RN aa5 Ann Malone RN RN ss Parminder Abrams, PA PA cp Corrections: (The following items were deleted from the chart) 19:23 17:21 Patient left the ED. aa5 19:23 17:10 Patient left the ED. aa5 aa5
--- NOTE | 2025-02-17 16:01 | EDPHYS ---
Physician Documentation [facility] Name: Julieth Barragan Age: 89 yrs Sex: Female : 1935 Arrival Date: 02/17/2025 Time: 14:04 Bed 6 Private MD: ED Physician Bj Feliciano HPI: 02/17 14:45 This 89 yrs old Female presents to ER via EMS with complaints of Fall Injury. cp 14:45 Details of fall: The patient fell from a height, chair, and struck hard floor. cp Associated injuries: The patient sustained injury to the head, contusion, swelling, tenderness. Severity of symptoms: in the emergency department the symptoms no complaints of pain, no LOC. Historical: - Allergies: 14:37 Hydroxyzine; (Face flushing); aa5 14:37 donepezil (dizziness); aa5 - PMHx: 14:37 High Cholesterol; Osteoporosis; Parkinsons; Dementia; aa5 - Immunization history:: Adult Immunizations unknown. - Infectious Disease History:: Denies. - Social history:: Smoking status: Patient denies any tobacco usage or history of. ROS: 14:50 MS/extremity: Positive for contusion, swelling, tenderness, of the left side of cp forehead, 14:50 Constitutional: Negative for body aches, chills, fever, poor PO intake, cp 14:50 Eyes: Negative for injury, pain, redness, and discharge, cp 14:50 Neck: Negative for pain with movement, pain at rest, stiffness, 14:50 Cardiovascular: Negative for chest pain, edema, palpitations, 14:50 Respiratory: Negative for cough, shortness of breath, wheezing, 14:50 Abdomen/GI: Negative for abdominal pain, nausea, vomiting, and diarrhea, 14:50 Back: Negative for pain at rest, pain with movement, 14:50 Neuro: Negative for altered mental status, dizziness, headache, loss of consciousness, syncope, near syncope, weakness, 14:50 All other systems are negative, Exam: 14:55 Constitutional: The patient appears in no acute distress, alert, awake, comfortable, cp non-diaphoretic, non-toxic, well developed, well nourished, 14:55 Head/face: Noted is contusion, that is superficial, of the left side of forehead, cp ecchymosis, that is mild, of the forehead, swelling, that is mild, of the left side of forehead, 14:55 Eyes: Pupils: equal, round, and reactive to light and accomodation, Extraocular movements: intact throughout, Conjunctiva: normal, no exudate, no injection, Sclera: no appreciated abnormality, Lids and lashes: appear normal, bilaterally, 14:55 ENT: External ear(s): are unremarkable, Nose: is normal, Mouth: Lips: moist, Oral mucosa: moist, Posterior pharynx: Airway: no evidence of obstruction, patent, 14:55 Neck: C-spine: vertebral tenderness, is not appreciated, crepitus, is not appreciated, ROM/movement: pain, is not appreciated, limited range of motion, is not appreciated, 14:55 Chest/axilla: Inspection: normal, Palpation: is normal, no crepitus, no tenderness, 14:55 Cardiovascular: Rate: normal, 14:55 Respiratory: the patient does not display signs of respiratory distress, Respirations: normal, no use of accessory muscles, no retractions, labored breathing, is not present, Breath sounds: are clear throughout, no decreased breath sounds, no stridor, no wheezing, 14:55 Abdomen/GI: Inspection: abdomen appears normal, Palpation: abdomen is soft and non-tender, in all quadrants, 14:55 Back: vertebral tenderness, is not appreciated, 14:55 Musculoskeletal/extremity: Exam is negative for acute changes, 14:55 Neuro: Orientation: to person, place \T\ time. Mentation: is normal, Motor: moves all fours, no focal deficits, Sensation: no obvious gross deficits, Vital Signs: 14:37 BP 184 / 79; Pulse 68; Resp 18 S; Temp 97.5(TE); Pulse Ox 99% on R/A; aa5 15:14 BP 176 / 65; Pulse 70; Resp 16 S; Pulse Ox 99% on R/A; aa5 17:00 BP 174 / 62; Pulse 72; Resp 18 S; Pulse Ox 99% on R/A; aa5 MDM: 14:38 Medical Screening Exam initiated cp 15:00 Differential diagnosis: closed head injury, contusion, fracture, laceration, multiple cp trauma. 16:00 Data reviewed: vital signs, nurses notes, radiologic studies, CT scan, and as a result, I will discharge patient. 16:00 I considered the following discharge prescriptions or medication management in the cp emergency department Medications were administered in the Emergency Department. See MAR. Counseling: I had a detailed discussion with the patient and/or guardian regarding the historical points, exam findings, and any diagnostic results supporting the discharge/admit diagnosis, radiology results, to return to the emergency department if symptoms worsen or persist or if there are any questions or concerns that arise at home. Response to treatment: the patient's symptoms have mildly improved after treatment, and as a result, I will discharge patient. Special discussion: Based on the patient's history, exam and DX evaluation, there is no indication for emergent intervention or inpatient TX. It is understood by the patient/guardian that if the SXs persist or worsen they need to return immediately for re-evaluation. 02/17 14:44 Order name: CT Head C Spine; Complete Time: 15:50 cp 02/17 15:50 Interpretation: Reviewed report. cp Administered Medications: 15:13 Drug: Acetaminophen PO 1000 mg PO once Route: PO; aa5 15:45 Follow up: Response: No adverse reaction aa5 Disposition: 17:24 Co-signature as Attending Physician, Bj Feliciano MD I reviewed the patient's care rn provided by the Advanced Practice Provider and agree with the diagnosis and treatment plan. 02/18 15:42 Chart complete. cp Disposition Summary: 02/17/25 16:00 Discharge Ordered Notes: Location: Home cp Problem: new cp Symptoms: have improved cp Condition: Stable cp Diagnosis - Contusion of unspecified part of head, initial encounter cp - Fall from chair, initial encounter cp Followup: cp - With: Emergency Department - When: As needed - Reason: Worsening of condition Discharge Instructions: - Discharge Summary Sheet cp - Facial or Scalp Contusion cp - Head Injury, Adult cp - Hematoma cp - Fall Prevention in the Home, Adult cp - Understanding Your Risk for Falls cp Forms: - Medication Reconciliation Form cp - Antibiotic Education cp - Prescription Opioid Use cp - Patient Portal Instructions cp - Leadership Thank You Letter cp Signatures: Dispatcher [employer] Bj Ribeiro MD MD rn Calderon, Audri, RN RN aa5 Parminder Abrams PA PA cp
[2025-02-17 17:26] VITALS: TEMP 97.5; O2SAT 99
[2025-02-17 17:27] VITALS: BP 176/65
== END 2025-02-17 17:21 | disposition home or self-care (01) ==
LOC: ER 14:04
DX: S00.83XA Contusion of other part of head, initial encounter (principal); W07.XXXA Fall from chair, initial encounter; G20.A1 Parkinson's disease without dyskinesia, without mention of fluctuations; F02.80 Dementia in other diseases classified elsewhere, unspecified severity, without behavioral disturbance, psychotic disturbance, mood disturbance, and anxiety
CPT/HCPCS: 70450; 72125; 99284

== ENCOUNTER 2025-03-06 08:08 | Emergency (ER) | payer OTHER ==
--- OUTSIDE RECORDS SUMMARY | 2025-03-06 08:11 | XMS REPORT | Continuity of Care Document ---
Author Name Unknown Address [address] [place] [id number] [facility] Address [address] [place] [id number] Care Team Providers Care Engineer Specialist Name Role Phone Unavailable Unavailable Unavailable
--- NOTE | 2025-03-06 09:05 | RAD REPORT ---
EXAMINATION: Head C Spine Mpr Wo Con CLINICAL INDICATION: Female, 89 years old. TRAUMA TECHNIQUE: Axial CT images from the skull base to the vertex without intravenous contrast. Axial CT i mages through the cervical spine were obtained without intravenous contrast. Sagittal and coronal reformatted images were created from the data set. Coronal and sagittal reformatted images were creat ed from the data set. One or more of the following dose reduction techniques were used: Automated exposure control, adjustment of the mA and/or kV according to patient size, and/or iterative reconstr uction. Unless otherwise specified, incidental findings do not require dedicated imaging follow-up. [id number]. COMPARISON: 02/17/2025 FINDINGS: Head: INTRACRANIAL: No acute intracranial hemorrhage. No hydrocephalus. No mass effect or midline shift. Mo derate chronic small vessel ischemic changes.Moderate cerebral atrophy. VASCULATURE: No visualized abnormalities in the arteries or dural venous sinuses. SCALP/SKULL: No calvarial fracture identified. Left frontal scalp hematoma. SINUSES: The visualized paranasal sinuses are mostly clear. No significant mastoid fluid. Cervical spine: ALIGNMENT: The cervical spine has normal alignment without scoliosis or spondylolisthesis. BONE: Vertebral body heights are maintained. No aggressive osseous lesions. DEGENERATIVE: Multilevel cervical spondylosis with evidence of bilateral neural foraminal narrowing. No high grade central spinal stenosis. SOFT TISSUE: No significant abnormalities in the soft tissue of the neck. The visualized lung apices are clear. IMPRESSION: No acute intracranial abnormality. No acute fracture or traumatic malalignment of the cervical spine.
--- NOTE | 2025-03-06 09:09 | EDPHYS ---
Physician Documentation [facility] Name: Julieth Barragan Age: 89 yrs Sex: Female : 1935 Arrival Date: 03/06/2025 Time: 08:08 Bed 2 Private MD: ED Physician Ramiro Oliveira HPI: 03/06 08:28 This 89 yrs old Female presents to ER via EMS with complaints of Fall Injury. sp3 08:28 89-year-old female with history of dementia, hyperlipidemia, osteoporosis, Parkinson's sp3 now presents to the ED with mechanical fall while using walker with injury to the left forehead. Patient has ecchymosis to the face from prior injury last week. She denies any loss of consciousness during the fall. She is on aspirin. ROS otherwise negative.. Historical: - Allergies: 08:13 Donepezil (DIZZINESS); hb 08:13 Hydroxyzine; (Face flushing); hb - Home Meds: 08:13 aspirin 81 mg Oral cap 1 cap once daily [Active]; carbidopa-levodopa 25-100 mg Oral hb TbER 1 tab 2 times per day for Parkinsonism [Active]; pramipexole 0.5 mg Oral tab 2 tabs 3 times per day [Active]; Tumeric 60 mg Oral tab 1 tab once daily [Active]; Fish Oil oral daily [Active]; Fish Oil oral daily [Active]; Multivitamin Women 50 Plus oral [Active]; Vitamin D Oral daily [Active]; - PMHx: 08:13 Dementia; High Cholesterol; Osteoporosis; Parkinsons; hb - Immunization history:: Adult Immunizations up to date. - Infectious Disease History:: Denies. - Social history:: Smoking status: Patient denies any tobacco usage or history of. ROS: 08:31 Constitutional: Negative for fever, chills, and weight loss, Eyes: Negative for injury, sp3 pain, redness, and discharge, ENT: Negative for injury, pain, and discharge, Neck: Negative for injury, pain, and swelling, Cardiovascular: Negative for chest pain, palpitations, and edema, Respiratory: Negative for shortness of breath, cough, wheezing, and pleuritic chest pain, Abdomen/GI: Negative for abdominal pain, nausea, vomiting, diarrhea, and constipation, Back: Negative for injury and pain, Skin: Negative for injury, rash, and discoloration, Allergy/Immunology: Negative for hives, rash, and allergies, Endocrine: Negative for neck swelling, polydipsia, polyuria, polyphagia, and marked weight changes, Hematologic/Lymphatic: Negative for swollen nodes, abnormal bleeding, and unusual bruising, 08:31 All other systems are negative, Exam: 08:31 Constitutional: This is a well developed, well nourished patient who is awake, alert, sp3 and in no acute distress. Eyes: Pupils equal round and reactive to light, extra-ocular motions intact. Lids and lashes normal. Conjunctiva and sclera are non-icteric and not injected. Cornea within normal limits. Periorbital areas with no swelling, redness, or edema. ENT: Nares patent. No nasal discharge, no septal abnormalities noted. External auditory canals are clear. Oropharynx with no redness, swelling, or masses, exudates, or evidence of obstruction, uvula midline. Mucous membranes moist. Neck: Trachea midline, no thyromegaly or masses palpated, and no cervical lymphadenopathy. Supple, full range of motion without nuchal rigidity, or vertebral point tenderness. No Meningismus. Chest/axilla: Normal chest wall appearance and motion. Nontender with no deformity. No lesions are appreciated. Cardiovascular: Regular rate and rhythm with a normal S1 and S2. No gallops, murmurs, or rubs. Normal PMI, no JVD. No pulse deficits. Respiratory: Lungs have equal breath sounds bilaterally, clear to auscultation and percussion. No rales, rhonchi or wheezes noted. No increased work of breathing, no retractions or nasal flaring. Abdomen/GI: Soft, non-tender, with normal bowel sounds. No distension or tympany. No guarding or rebound. No evidence of tenderness throughout. Back: No spinal tenderness. No costovertebral tenderness. Full range of motion. Skin: Warm, dry with normal turgor. Normal color with no rashes, no lesions, and no evidence of cellulitis. MS/ Extremity: Pulses equal, no cyanosis. Neurovascular intact. Full, normal range of motion. Psych: Awake, alert, with orientation to person, place and time. Behavior, mood, and affect are within normal limits. 08:31 Head/face: Ecchymosis to the left forehead that appear new and older ecchymoses bilateral infraorbital. Neuroexam normal except for memory loss.. Vital Signs: 08:11 BP 219 / 80; Pulse 66; Resp 16; Temp 98.1; Pulse Ox 100% on R/A; Weight 51.71 kg; hb Height 5 ft. 3 in. ; Pain 3/10; 09:17 BP 171 / 66; Pulse 64; Resp 15; Pulse Ox 98% on R/A; hb 08:11 Body Mass Index 20.19 (51.71 kg, 160.02 cm) hb 08:11 Pain Scale: Adult hb MDM: 08:16 Medical Screening Exam initiated sp3 08:31 Data reviewed: vital signs, nurses notes, radiologic studies. ED course: 89-year-old sp3 female with PMH above with mechanical fall and head injury. CT scan of the head and C-spine pending. Differential diagnosis includes forehead contusion versus intracranial hemorrhage versus concussion. I have advised family to start using wheelchair as opposed to the walker given multiple falls. If workup negative we will discharge back to assisted.. 03/06 08:16 Order name: CT Head C Spine; Complete Time: 09:07 sp3 03/06 08:16 Order name: Recheck Blood Pressure; Complete Time: 09:19 sp3 Administered Medications: No medications were administered Disposition Summary: 03/06/25 09:08 Discharge Ordered Notes: Location: Home sp3 Condition: Stable sp3 Diagnosis - Mechanical fall, forehead contusion sp3 Followup: sp3 - With: Private Physician - When: Upon discharge from the Emergency Department - Reason: Continuance of care Discharge Instructions: - Discharge Summary Sheet sp3 - Head Injury, Adult sp3 - Fall Prevention in the Home, Adult sp3 Forms: - Medication Reconciliation Form sp3 - Antibiotic Education sp3 - Prescription Opioid Use sp3 - Patient Portal Instructions sp3 - Leadership Thank You Letter sp3 Signatures: Dispatcher [employer] Sydney Blake RN RN Ramiro Oliveira MD MD sp3
--- NOTE | 2025-03-06 09:09 | ER ---
Nurse's Notes [facility] Name: Julieth Barragan Age: 89 yrs Sex: Female : 1935 Arrival Date: 03/06/2025 Time: 08:08 Bed 2 Private MD: Diagnosis: Mechanical fall, forehead contusion Presentation: 03/06 08:11 Chief complaint: EMS states: Tripped while ambulating with walker, hit head on floor. hb Negative LOC. Contusion noted to left forehead. Coronavirus screen: At this time, the client does not indicate any symptoms associated with coronavirus-19. Ebola Screen: No symptoms or risks identified at this time. Initial Sepsis Screen: Does the patient meet any 2 criteria? No. Patient's initial sepsis screen is negative. Does the patient have a suspected source of infection? No. Patient's initial sepsis screen is negative. Risk Assessment: Do you want to hurt yourself or someone else? Patient reports no desire to harm self or others. Onset of symptoms was March 06, 2025. 08:11 Method Of Arrival: EMS: [facility] hb 08:11 Acuity: RUKHSANA 3 hb Triage Assessment: 08:11 General: Appears in no apparent distress. Behavior is calm, cooperative. Pain: Pain hb currently is 2 out of 10 on a pain scale. Neuro: Level of Consciousness is awake, alert, obeys commands, Oriented to person, place, time, situation. Cardiovascular: Patient's skin is warm and dry. Respiratory: Respiratory effort is even, unlabored, Respiratory pattern is regular, symmetrical. Historical: - Allergies: 08:13 Donepezil (DIZZINESS); hb 08:13 Hydroxyzine; (Face flushing); hb - Home Meds: 08:13 aspirin 81 mg Oral cap 1 cap once daily [Active]; carbidopa-levodopa 25-100 mg Oral hb TbER 1 tab 2 times per day for Parkinsonism [Active]; pramipexole 0.5 mg Oral tab 2 tabs 3 times per day [Active]; Tumeric 60 mg Oral tab 1 tab once daily [Active]; Fish Oil oral daily [Active]; Fish Oil oral daily [Active]; Multivitamin Women 50 Plus oral [Active]; Vitamin D Oral daily [Active]; - PMHx: 08:13 Dementia; High Cholesterol; Osteoporosis; Parkinsons; hb - Immunization history:: Adult Immunizations up to date. - Infectious Disease History:: Denies. - Social history:: Smoking status: Patient denies any tobacco usage or history of. Screenin:18 [facility] ED Fall Risk Assessment (Adult) History of falling in the last 3 months, hb including since admission Yes- physiologic fall (2 pts) Confusion or Disorientation No (0 pts) Intoxicated or Sedated No (0 pts) Impaired Gait Yes (1 pt) Mobility Assist Device Used Yes (1 pt) Altered Elimination Yes (1 pt) Score/Fall Risk Level 3 or more points = High Risk Oriented to surroundings, Maintained a safe environment, Educated pt \T\ family on fall prevention, incl call for assistance when getting out of bed, Assessed \T\ reinforced patient's understanding of fall precautions, Hourly rounding (assess needs \T\ fall precautionary measures) done. Abuse screen: Denies threats or abuse. Denies injuries from another. Nutritional screening: No deficits noted. Tuberculosis screening: No symptoms or risk factors identified. Assessment: 08:17 General: See triage assessment . hb 09:17 Reassessment: Patient appears in no apparent distress at this time. Patient and/or hb family updated on plan of care and expected duration. Pain level reassessed. Patient is alert, oriented x 3, equal unlabored respirations, skin warm/dry/pink. 09:18 Reassessment: Discharge pending EMS transport to [facility]. Vital Signs: 08:11 BP 219 / 80; Pulse 66; Resp 16; Temp 98.1; Pulse Ox 100% on R/A; Weight 51.71 kg; hb Height 5 ft. 3 in. ; Pain 3/10; 09:17 BP 171 / 66; Pulse 64; Resp 15; Pulse Ox 98% on R/A; hb 08:11 Body Mass Index 20.19 (51.71 kg, 160.02 cm) hb 08:11 Pain Scale: Adult ED Course: 08:11 Patient arrived in ED. hb 08:13 Ramiro Oliveira MD is Attending Physician. sp3 08:13 Triage completed. hb 08:17 Arm band placed on. hb 08:18 Patient has correct armband on for positive identification. Bed in low position. hb Provided Education on: use of call light . 08:19 Sydney Grewal, RN is Primary Nurse. hb 08:57 CT Head C Spine In Process Unspecified. EDMS 09:17 No provider procedures requiring assistance completed. Patient did not have IV access hb during this emergency room visit. Administered Medications: No medications were administered Medication: 08:17 VIS not applicable for this client. hb Outcome: 09:08 Discharge ordered by . sp3 09:17 Discharged to home via ambulance, 09:17 Condition: stable 09:17 Discharge instructions given to patient, family, Instructed on discharge instructions, follow up and referral plans. Demonstrated understanding of instructions, follow-up care, 09:38 Patient left the ED. hb Signatures: Dispatcher [employer] EDMS Sydney Grewal RN RN Ramiro Oliveira MD MD sp3
[2025-03-06 09:43] VITALS: TEMP 98.1
[2025-03-06 09:44] VITALS: BP 171/66; O2SAT 98
== END 2025-03-06 09:38 | disposition home or self-care (01) ==
LOC: ER 08:08
DX: S00.83XA Contusion of other part of head, initial encounter (principal); W18.30XA Fall on same level, unspecified, initial encounter; G20.A1 Parkinson's disease without dyskinesia, without mention of fluctuations; Z79.82 Long term (current) use of aspirin
CPT/HCPCS: 70450; 72125; 99283